=== PATIENT | female | born 1970 | race Caucasian/White ===

== ENCOUNTER 2016-11-29 19:16 | Emergency (ER) | payer BC ==
[2016-11-29 19:35] VITALS: BP 162/112
[2016-11-29] MEDS ORDERED: Sodium Chloride 0.9% 10 ML Syringe FLUSH PRN (19:45)
--- NOTE | 2016-11-29 19:49 | EDM.PDOC ---
ED HISTORY OF PRESENT ILLNESS - General Chief Complaint: Chest Pain Stated Complaint: CHEST PAIN Time Seen by Provider: 11/29/16 19:33 Source of Information: Reports: Patient History Limitations: Reports: No limitations - History of Present Illness INITIAL COMMENTS - FREE TEXT/NARRATIVE: Patient is a 46-year-old female presents ED complaining of sharp chest discomfort along the sternal border that radiates into her right armpit, shoulder, and chin. 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 Patient states the pain came on abruptly with no known aggravating factors. Worsen with taking a deep breath and also palpation. Less than on for a short period of time. She's been experiencing this proximally 6-7 times since onset. States the intensity has increased mildly. Denies any sweating, nausea, vomiting, shortness of breath, dizziness, lightheadedness, cough, fever/chills, or any additional complaints. She has a history of acid reflux and although she did not have any D. symptoms she took 2 Pepcid pills. She has no prior history of these similar type symptoms. Denies any recent upper respiratory infection. Past medical history hyperlipidemia, depression, and acid reflux Current medications include Lexapro and vitamin B12 SH: Hysterectomy, Bowel Resection She does multiple first degree relatives with heart disease. 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 stated) - Related Data Allergies/ADRs: Allergies Allergy/AdvReac Type Severity Reaction Status Date / Time No Known Allergies Allergy Verified 11/29/16 19:27 Home Meds: Home Meds Cyanocobalamin (Vitamin B12) [Vitamin B12] 1,000 mcg INJECT ASDIRECTED 05/15/14 [History] Escitalopram [Lexapro] 20 mg PO DAILY 11/29/16 [History] Past Medical History HEENT History: Reports: Impaired vision Cardiovascular History: Reports: High cholesterol Gastrointestinal History: Reports: Chronic diarrhea, GERD 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 hysterectomy Oncologic (Cancer) History: Reports: Cervix - Past Surgical History GI Surgical History: Reports: Other (see below) Other GI Surgeries/Procedures: knicked bowel during hysterectomy and had some bowel removed. Social & Family History - Family History Cardiac: Reports: CAD - Tobacco Use Smoking Status *Q: Never Smoker - Caffeine Use Caffeine Use: Reports: Coffee, Tea - Recreational Drug Use Recreational Drug Use: No ED ROS GENERAL - Review of Systems Review Of Systems: ROS reveals no pertinent complaints other than HPI. ED EXAM, GENERAL - Physical Exam Exam: See Below Exam Limited By: No limitations General Appearance: alert, WD/WN, no apparent distress Ears: hearing grossly normal Nose: normal inspection Throat/Mouth: Normal voice, No airway compromise Neck: normal inspection Respiratory/Chest: no respiratory distress, lungs clear, normal breath sounds, no accessory muscle use, other (Pain with palpation along anita fifth intercostal space on the right side with radiation to her right armpit. ) GI/Abdominal: normal bowel sounds, soft, non tender, no distention Back Exam: normal inspection. No: CVA tenderness (L), CVA tenderness (R) Extremities: normal inspection, non-tender, no pedal edema Neurological: alert, oriented, CN II-XII intact, normal cognition, normal gait, no motor/sensory deficits Psychiatric: normal affect, normal mood Skin Exam: Warm, Dry, Intact, Normal color Course - Vital Signs Last Recorded V/S: Last Vital Signs Temp 97.3 F 11/29/16 19:29 Pulse 87 11/29/16 19:29 Resp 18 11/29/16 19:29 BP 162/112 H 11/29/16 19:29 Pulse Ox 99 11/29/16 19:29 - Orders/Labs/Meds Orders: Active Orders 24 hr Category Date Time Status EKG Documentation Completion [RC] STAT Care 11/29/16 19:45 Active Peripheral IV Care [RC] . DIRECTED Care 11/29/16 19:45 Active Chest 2V [CR] Stat Exams 11/29/16 19:45 Taken Peripheral IV Insertion Adult [OM.PC] Stat Oth 11/29/16 19:45 Ordered Labs: Laboratory Tests 11/29/16 11/29/16 Range/Units 20:04 20:04 WBC 9.39 (3.98-10.04) K/mm3 RBC 4.80 (3.98-5.22) M/mm3 Hgb 13.2 (11.2-15.7) gm/L Hct 39.5 (34.1-44.9) % MCV 82.3 (79.4-94.8) fl MCH 27.5 (25.6-32.2) pg MCHC 33.4 (32.2-35.5) g/dl RDW Std Deviation 39.9 (36.4-46.3) fL Plt Count 178 L (182-369) K/mm3 MPV 10.7 (9.4-12.3) fl Neut % (Auto) 56.9 (34.0-71.1) % Lymph % (Auto) 34.2 (19.3-51.7) % [place] % (Auto) 6.4 (4.7-12.5) % Eos % (Auto) 1.9 (0.7-5.8) Baso % (Auto) 0.3 (0.1-1.2) % Neut # (Auto) 5.34 (1.56-6.13) K/mm3 Lymph # (Auto) 3.21 (1.18-3.74) K/mm3 [place] # (Auto) 0.60 H (0.24-0.36) K/mm3 Eos # (Auto) 0.18 (0.04-0.36) K/mm3 Baso # (Auto) 0.03 (0.01-0.08) K/mm3 Sodium 143 (136-145) mEq/L Potassium 3.1 L (3.5-5.1) mEq/L Chloride 104 (98-107) mEq/L Carbon Dioxide 30 (21-32) mEq/L Anion Gap 12.1 (5-15) BUN 12 (7-18) mg/dL Creatinine 0.8 (0.55-1.02) mg/dL Est Cr Clr Drug Dosing TNP Estimated GFR (MDRD) > 60 (>60) mL/min BUN/Creatinine Ratio 15.0 (14-18) Glucose 115 H (74-106) mg/dL Calcium 9.0 (8.5-10.1) mg/dL Total Bilirubin 1.1 H (0.2-1.0) mg/dL AST 25 (15-37) U/L ALT 28 (14-59) U/L Alkaline Phosphatase 81 (46-116) U/L Troponin I < 0.017 (0.00-0.056) ng/mL C-Reactive Protein 1.9 H* (<1.0) mg/dL Total Protein 6.9 (6.4-8.2) g/dl Albumin 3.3 L (3.4-5.0) g/dl Globulin 3.6 gm/dL Albumin/Globulin Ratio 0.9 L (1-2) Meds: Medications Discontinued Medications Generic Name Dose Route Start Last Admin Trade Name Freq PRN Reason Stop Dose Admin Ketorolac Tromethamine 30 mg 11/29/16 21:05 11/29/16 21:11 Toradol IVPUSH 11/29/16 21:06 30 mg ONETIME ONE Administration Sodium Chloride 10 ml 11/29/16 19:45 11/29/16 20:48 Saline Flush FLUSH 10 ml ASDIRECTED PRN Administration Keep Vein Open - Re-Assessments/Exams Free Text/Narrative Re-Assessment/Exam: Examination elicited reproducible pain with palpation along the fourth and fifth intercostal space on the right side with radiation to her right armpit. Pain is worsened with taking a deep breath and palpation. States she has radiation to her right shoulder and also chin. She had no diaphoresis, shortness of breath, nausea/vomiting, or any additional complaints. She has no prior history of chest pain as such. 11/29/16 19:47 Ordered peripheral IV. Initial labs and studies include CBC, chem 14, CRP, EKG, and chest x-ray. PERC rule negative. CXR reviewed with Dr. Erwin revealed no acute findings. Final interpretation is pending. EKG Sinus rhythm with normal p axis, rate of 73, QTc 468, No acute st changes noted. Labs reviewed. Potassium 3.1, troponin within normal limits, CRP mildly elevated 1.9, CBC essentially normal. 11/29/16 21:17 Reassessment, patient has no complaints at this time. Vital signs are stable. She is ready be discharged home. I did share the results of the labs and studies with the patient. She is aware that she has low potassium and will need supplementation. Instructions as documented. Departure - Departure Time of Disposition: 21:18 Disposition: Home, Self-Care 01 Condition: good Clinical Impression: Atypical chest pain, Hypokalemia, Costal chondritis Instructions: Nonspecific Chest Pain, [id number] Referrals: Carlee Long MD [Primary Care Provider] - Forms: ED Department Discharge Additional Instructions: As discussed chest x-ray and EKG did not reveal any concerning findings. Troponin which is a specific enzymes to the heart was within normal limits. CRP was mildly elevated which is a non-specific inflammatory marker. Most likely this is related to costochondritis or inflammation to one of the rib joints located in the right-side of the chest. Treatment is symptomatic care only. This includes ibuprofen 600 mg every 6 hours and Tylenol 650 mg every 6hrs in alternating fashion. Please take ibuprofen with food. If you develop stomach irritation suggest taking Pepcid one tab daily. Followup with your primary care provider this coming week if symptoms not improved. Return back to ED if you develop any new or worsening symptoms as discussed.. - My Orders Last 24 Hours: My Active Orders 11/29/16 19:45 EKG Documentation Completion [RC] STAT Peripheral IV Care [RC] . DIRECTED Chest 2V [CR] Stat Peripheral IV Insertion Adult [OM.PC] Stat - Assessment/Plan Last 24 Hours: My Active Orders 11/29/16 19:45 EKG Documentation Completion [RC] STAT Peripheral IV Care [RC] . DIRECTED Chest 2V [CR] Stat Peripheral IV Insertion Adult [OM.PC] Stat
[2016-11-29] MEDS ORDERED: Ketorolac 30 MG/ML SDV IVPUSH ONE (21:05)
--- NOTE | 2016-11-30 08:21 | CR ---
Chest: Two views of the chest were obtained. Comparison: No previous study. Heart size and mediastinum are normal. Lungs are clear. Bony structures are unremarkable for the patient's age. Impression: 1. Nothing acute is identified on two-view chest x-ray. Diagnostic code #1
== END 2016-11-29 21:27 | disposition home or self-care (01) ==
LOC: JD.ED 19:16
DX: M94.0 Chondrocostal junction syndrome [Tietze] (principal); R07.89 Other chest pain; E87.6 Hypokalemia; E78.00 Pure hypercholesterolemia, unspecified; K21.9 Gastro-esophageal reflux disease without esophagitis; F32.9 Major depressive disorder, single episode, unspecified; Z79.899 Other long term (current) drug therapy; Z90.710 Acquired absence of both cervix and uterus
CPT/HCPCS: 36415; 71020; 80053; 84484; 85025; 86140; 93005; 96374; 99285; J1885; J7050; 99284

== ENCOUNTER 2017-05-02 14:47 | Emergency (ER) | payer BC ==
[2017-05-02] MEDS ORDERED: HYDROmorphone 1 MG/ML Syringe IVPUSH ONE (15:42)
[2017-05-02] MEDS ORDERED: Sodium Chloride 0.9% 10 ML Syringe FLUSH PRN ×2 (15:42→16:18)
[2017-05-02] MEDS ORDERED: Ondansetron 4 MG/2 ML SDV IVPUSH ONE (15:42)
[2017-05-02] MEDS ORDERED: Sodium Chloride 0.9% 1,000 ML IV ONE (15:42)
--- NOTE | 2017-05-02 15:53 | EDM.PDOC ---
ED HPI GENERAL MEDICAL PROBLEM - General Chief Complaint: Abdominal Pain Stated Complaint: SIDE PAIN Time Seen by Provider: 05/02/17 15:36 Source of Information: Reports: Patient History Limitations: Reports: No Limitations - History of Present Illness INITIAL COMMENTS - FREE TEXT/NARRATIVE: 46-year-old female presents for evaluation and treatment of abdominal pain. Patient reports that the abdominal pain woke her from sleep around 0530 this morning. She states that is located on the left upper quadrant and epigastric area radiates into her back. Patient reports associated symptoms of nausea, bloating and a decreased appetite. She denies any fevers, vomiting, dysuria or hematuria. Patient reports that she had 2 bowel movements today. She states that she did have looser stools, no blood in the stool. Reports that she is not passing much gas. Patient reports that she had a colonoscopy 2 or 3 years ago. Only polyps were found. Reports that she's had multiple abdominal surgeries including hernia repairs, cholecystectomy, hysterectomy and partial bowel resection. 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 CLERK: pepcid Left Abdomen Pain Score (Numeric/FACES): 6 - Related Data Allergies Allergy/AdvReac Type Severity Reaction Status Date / Time No Known Allergies Allergy Verified 11/29/16 19:27 Home Meds: Home Meds Cyanocobalamin (Vitamin B12) [Vitamin B12] 1,000 mcg INJECT ASDIRECTED 05/15/14 [History] Escitalopram [Lexapro] 20 mg PO DAILY 11/29/16 [History] Past Medical History HEENT History: Reports: Impaired Vision Cardiovascular History: Reports: High Cholesterol, Hypertension Gastrointestinal History: Reports: Chronic Diarrhea, 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 hysterectomy Endocrine/Metabolic History: Reports: Diabetes, Type II Other Endocrine/Metabolic History: recent diagnosis-nno meds yet Oncologic (Cancer) History: Reports: Cervix - Past Surgical History GI Surgical History: Reports: Other (See Below) Social & Family History - Family History Cardiac: Reports: CAD - Tobacco Use Smoking Status *Q: Never Smoker - Caffeine Use Caffeine Use: Reports: Coffee - Recreational Drug Use Recreational Drug Use: No ED ROS GENERAL - Review of Systems Review Of Systems: See Below Constitutional: Reports: Decreased Appetite. Denies: Fever GI/Abdominal: Reports: Abdominal Pain, Distension, Nausea. Denies: Diarrhea, Flatus, Hematochezia, Melena, Vomiting : Reports: No Symptoms, Flank Pain. Denies: Dysuria ED EXAM, GI/ABD - Physical Exam Exam: See Below Exam Limited By: No Limitations General Appearance: Alert, WD/WN, Mild Distress, Obese Ears: Normal External Exam Nose: Normal Inspection Throat/Mouth: Normal Inspection, Normal Voice, No Airway Compromise Respiratory/Chest: No Respiratory Distress, Lungs Clear, Normal Breath Sounds Cardiovascular: Normal Peripheral Pulses, Regular Rate, Rhythm, No Murmur GI/Abdominal Exam: Distended, Tender, Abnormal Bowel Sounds (decreased erendira sounds). No: Rigid, Rebound Neurological: Alert, Oriented, Normal Cognition Psychiatric: Normal Affect, Normal Mood Skin Exam: Warm, Dry, Normal Color Course - Vital Signs Last Recorded V/S: Last Vital Signs Temp 36.6 C 05/02/17 15:00 Pulse 65 05/02/17 18:59 Resp 20 05/02/17 15:00 BP 128/76 05/02/17 18:59 Pulse Ox 96 05/02/17 18:59 - Orders/Labs/Meds Labs: Laboratory Tests 05/02/17 05/02/17 05/02/17 Range/Units 15:19 15:50 15:50 WBC 10.39 H (3.98-10.04) K/mm3 RBC 5.08 (3.98-5.22) M/mm3 Hgb 14.3 (11.2-15.7) gm/L Hct 42.0 (34.1-44.9) % MCV 82.7 (79.4-94.8) fl MCH 28.1 (25.6-32.2) pg MCHC 34.0 (32.2-35.5) g/dl RDW Std Deviation 40.6 (36.4-46.3) fL Plt Count 157 L (182-369) K/mm3 MPV 11.4 (9.4-12.3) fl Neutrophils % (Manual) 72 H (40-60) % Band Neutrophils % 0 (0-10) % Lymphocytes % (Manual) 20 (20-40) % Atypical Lymphs % 0 % Monocytes % (Manual) 4 (2-10) % Eosinophils % (Manual) 2 (0.7-5.8) % Basophils % (Manual) 2 H (0.1-1.2) Platelet Estimate Adequate RBC Morph Comment Normal Sodium 145 (136-145) mEq/L Potassium 3.7 (3.5-5.1) mEq/L Chloride 108 H (98-107) mEq/L Carbon Dioxide 32 (21-32) mEq/L Anion Gap 8.7 (5-15) BUN 11 (7-18) mg/dL Creatinine 0.9 (0.55-1.02) mg/dL Est Cr Clr Drug Dosing TNP Estimated GFR (MDRD) > 60 (>60) mL/min BUN/Creatinine Ratio 12.2 L (14-18) Glucose 97 (74-106) mg/dL Calcium 9.4 (8.5-10.1) mg/dL Total Bilirubin 1.8 H (0.2-1.0) mg/dL AST 38 H (15-37) U/L ALT 29 (14-59) U/L Alkaline Phosphatase 73 (46-116) U/L C-Reactive Protein 0.4 (<1.0) mg/dL Total Protein 7.1 (6.4-8.2) g/dl Albumin 3.5 (3.4-5.0) g/dl Globulin 3.6 gm/dL Albumin/Globulin Ratio 1.0 (1-2) Lipase 124 (73-393) U/L Urine Color Yellow (Yellow) Urine Appearance Slt cloudy H (Clear) Urine pH 5.5 (5.0-8.0) Ur Specific [place] 1.025 (1.005-1.030) Urine Protein Negative (Negative) Urine Glucose (UA) Negative (Negative) Urine Ketones Negative (Negative) Urine Occult Blood Negative (Negative) Urine Nitrite Negative (Negative) Urine Bilirubin Negative (Negative) Urine Urobilinogen 0.2 (0.2-1.0) Ur Leukocyte Esterase Trace H (Negative) Urine RBC 0-5 (0-5) /hpf Urine WBC 0-5 (0-5) /hpf Ur Epithelial Cells 0-5 (0-5) /hpf Urine Bacteria Moderate H (FEW) /hpf Urine Mucus Moderate H (FEW) /hpf Meds: Medications Discontinued Medications Generic Name Dose Route Start Last Admin Trade Name Freq PRN Reason Stop Dose Admin Diatrizoate Meglum/Diatrizoate Sod 120 ml 09/24/17 16:18 05/02/17 17:36 Gastrografin 37% PO 05/02/17 16:19 90 ml ONETIME ONE Administration Hydromorphone HCl 1 mg 05/02/17 15:42 05/02/17 15:57 Dilaudid IVPUSH 05/02/17 15:43 1 mg ONETIME ONE Administration Sodium Chloride 1,000 mls @ 999 mls/hr 05/02/17 15:42 05/02/17 16:00 Normal Saline IV 05/02/17 16:42 999 mls/hr ONETIME ONE Administration Iopamidol 150 ml 05/02/17 16:18 05/02/17 17:36 Isovue-300 (61%) IVPUSH 05/02/17 16:19 125 ml ONETIME ONE Administration Ketorolac Tromethamine 30 mg 05/02/17 18:50 05/02/17 18:56 Toradol IVPUSH 05/02/17 18:51 30 mg ONETIME ONE Administration Ondansetron HCl 4 mg 05/02/17 15:42 05/02/17 15:54 Zofran IVPUSH 05/02/17 15:43 4 mg ONETIME ONE Administration Sodium Chloride 10 ml 05/02/17 15:42 05/02/17 15:58 Saline Flush FLUSH 10 ml ASDIRECTED PRN Administration Keep Vein Open Sodium Chloride 10 ml 05/02/17 16:18 05/02/17 17:36 Saline Flush FLUSH 10 ml ONETIME PRN Administration IV FLUSH - Re-Assessments/Exams Free Text/Narrative Re-Assessment/Exam: 05/02/17 15:55 Plan is to obtain labs and CT to rule out pancreatitis, diverticulitis and bowel obstruction. Medication given for pain and nausea. 18:50 I reviewed the labs and imagining with the patient. AT this point etiology for the abdominal pain not entirely clear. UA had moderate bacteria seen on microscopy. Urien sent for culture. I do not feel we need to treat as this is likely contamination. She has no urinary symptoms. I've asked Dr. Kwesi Erwin to come and see the patient. Pain improved but returning slightly. Toradol ordered for pain relief. 05/02/17 19:19 Abdominal pain improved. I discussed the case with Dr. Kwesi Erwin. She has come and seen the patient. Does not feel further work-up is needed at this time. Will discharge the patient home at this time. Discharge instructions as documented. Departure - Departure Time of Disposition: 19:19 Disposition: Home, Self-Care 01 Condition: Good Clinical Impression: Abdominal pain of unknown etiology - Discharge Information Instructions: Abdominal Pain, Adult, [id number] Referrals: Carlee Long MD [Primary Care Provider] - Forms: ED Department Discharge Additional Instructions: Follow-up with your PCP this week for a recheck of your symptoms. Rest. Drink plenty of fluids. OTC tylenol or motrin as needed for pain. Please return to the ER should your symptoms change or worsen.
[2017-05-02] MEDS ORDERED: Iopamidol 612 MG/ML 150 ML Bottle IVPUSH ONE (16:18)
[2017-05-02] MEDS ORDERED: Diatrizoate Meglumine/Diatrizoate Sodium 37% 120 ML Bottle PO ONE (16:18)
--- NOTE | 2017-05-02 18:05 | CT ---
CT abdomen and pelvis Technique: Multiple axial sections were obtained from above the dome of the diaphragm inferiorly through the pubic symphysis. Intravenous and oral contrast was utilized. Delayed images were obtained through the bladder. Comparison: No previous abdominal CT. Findings: Visualized lung bases shows nothing acute. Liver shows fatty infiltration. Previous cholecystectomy is noted. No focal abnormality is identified within the liver. Spleen appears within normal limits. Adrenal glands show no nodule. Kidneys show symmetric contrast enhancement without hydronephrosis or mass. Pancreas appears within normal limits. Small soft tissue nodule within the splenic hilum is seen compatible with accessory splenic tissue. Aorta shows no aneurysmal dilatation. No retroperitoneal adenopathy or mesenteric abnormalities are seen. Graft material is seen within the anterior abdominal wall. No pelvic mass or adenopathy is seen. No inflammatory change is seen. Mild diverticulosis is noted. Several right-sided diverticuli are also seen. No bowel dilatation is seen. No bowel wall thickening is identified. Appendix is not definitely visualized. Delayed images were obtained through the bladder which shows contrast within the bladder. Bone window settings were reviewed which shows bilateral spondylolytic defects at L5-S1 with spondylolisthesis at L5-S1 measuring approximately 9 mm. Severe disc space narrowing is noted at L5-S1 with vacuum phenomena. Lesser degenerative change is seen at L4-L5. Impression: 1. Spondylolytic defects at L5-S1 causing 9 mm spondylolisthesis. 2. Mild diverticulosis is seen which includes right-sided diverticuli without inflammatory change to indicate diverticulitis. 3. Fatty infiltration within the liver and other incidental findings. 4. Nothing acute is appreciated on CT study of the abdomen and pelvis. Diagnostic code #2
[2017-05-02] MEDS ORDERED: Ketorolac 30 MG/ML SDV IVPUSH ONE (18:50)
[2017-05-02 18:59] VITALS: BP 128/76
== END 2017-05-02 19:32 | disposition home or self-care (01) ==
LOC: JD.ED 14:47
DX: R10.9 Unspecified abdominal pain (principal); I10 Essential (primary) hypertension; E11.9 Type 2 diabetes mellitus without complications; Z79.899 Other long term (current) drug therapy
CPT/HCPCS: 36415; 74177; 80053; 81001; 83690; 85025; 86140; 87086; 96361; 96374; 96375; 99284; J1170; J1885; J2405; J7040; J7050; Q9963; Q9967

== ENCOUNTER 2017-11-18 14:13 | Emergency (ER) | payer BC ==
[2017-11-18 14:25] VITALS: BP 158/98
[2017-11-18] MEDS ORDERED: Alum Hydrox/Mag Hydrox/Simeth 30 ML, Lidocaine 2% 15 ML PO ONE ×2 (15:06)
[2017-11-18] MEDS ORDERED: Sodium Chloride 0.9% 10 ML Syringe FLUSH PRN (15:11)
[2017-11-18] MEDS ORDERED: Ondansetron 4 MG/2 ML SDV IVPUSH ONE (15:17)
[2017-11-18] MEDS ORDERED: Sodium Chloride 0.9% 1,000 ML IV ONE (15:46)
--- NOTE | 2017-11-18 15:47 | EDM.PDOC ---
<Kavya Scott - Last Filed: 11/18/17 16:09> ED HPI GENERAL MEDICAL PROBLEM - General Chief Complaint: Abdominal Pain Stated Complaint: ABDOMINAL PAIN/NAUSEA Time Seen by Provider: 11/18/17 14:50 Source of Information: Reports: Patient History Limitations: Reports: No Limitations - History of Present Illness INITIAL COMMENTS - FREE TEXT/NARRATIVE: Patient is a 47 YO female who presents today for abdominal pain. She states the pain came on suddenly while driving to work around 0800 this morning. She describes the pain as cramping and sharp, located in the epigastric region and radiating to the RUQ and LUQ and around to her back. The pain is made worse with deep breaths and having a BM. Nothing makes the pain better. She was able to eat lunch around noon today but it made her very nauseous. She denies vomiting. She has not taken anything for the pain yet today. She has baseline diarrhea which has been normal for her today. She denies blood in the stool. She does have some baseline GERD but to her this does not feel the same. She does use TUMS on occasion. For the past 2 weeks, she has been experiencing urinary frequency but denies pain with urination or hematuria. Patient states prior to the onset of the pain she felt well and denies any fever. Epigastric Pain Score (Numeric/FACES): 8 - Related Data Allergies Allergy/AdvReac Type Severity Reaction Status Date / Time No Known Allergies Allergy Verified 11/18/17 14:25 Home Meds: Home Meds Cyanocobalamin (Vitamin B12) [Vitamin B12] 1,000 mcg INJECT ASDIRECTED 05/15/14 [History] Escitalopram [Lexapro] 20 mg PO DAILY 11/29/16 [History] Cholestyramine/Sucrose [Cholestyramine Powder] 4 gm PO DAILY 11/18/17 [History] atorvaSTATin [Lipitor] 20 mg PO BEDTIME 11/18/17 [History] buPROPion HCl [Wellbutrin SR] 150 mg PO DAILY 11/18/17 [History] valACYclovir HCl [Valacyclovir] 2,000 mg PO DAILY 11/18/17 [History] Past Medical History HEENT History: Reports: Impaired Vision Cardiovascular History: Reports: High Cholesterol, Hypertension Gastrointestinal History: Reports: Chronic Diarrhea, GERD [employer] History: Reports: Other (See Below) Other OB/BYN History: infertality issues. hysterectomy Endocrine/Metabolic History: Reports: Diabetes, Type II Other Endocrine/Metabolic History: recent diagnosis-nno meds yet Oncologic (Cancer) History: Reports: Cervix - Past Surgical History GI Surgical History: Reports: Other (See Below) Social & Family History - Family History Cardiac: Reports: CAD - Tobacco Use Smoking Status *Q: Never Smoker - Caffeine Use Caffeine Use: Reports: Coffee - Recreational Drug Use Recreational Drug Use: No ED ROS GENERAL - Review of Systems Review Of Systems: See Below Constitutional: Reports: No Symptoms Respiratory: Reports: Pleuritic Chest Pain. Denies: Cough Cardiovascular: Reports: No Symptoms GI/Abdominal: Reports: Abdominal Pain, Diarrhea, Nausea. Denies: Constipation, Difficulty Swallowing, Vomiting : Reports: Frequency, Urgency. Denies: Discharge, Dysuria, Hematuria, Pain Musculoskeletal: Reports: No Symptoms Neurological: Reports: No Symptoms Psychiatric: Reports: No Symptoms ED EXAM, GI/ABD - Physical Exam Exam: See Below Exam Limited By: No Limitations General Appearance: Alert, WD/WN, Mild Distress Respiratory/Chest: No Respiratory Distress, Lungs Clear, Normal Breath Sounds Cardiovascular: Normal Peripheral Pulses, Regular Rate, Rhythm, No Murmur, Other (pitting edema lower extremities bilaterally) GI/Abdominal Exam: Normal Bowel Sounds, Soft, Tender (epigastric and mild tenderness in RUQ and LUQ), Other (obese). No: Guarding, Rebound Back Exam: No: CVA Tenderness (L), CVA Tenderness (R) Neurological: Alert, Oriented, CN II-XII Intact, Normal Cognition Psychiatric: Normal Affect, Normal Mood Skin Exam: Warm, Dry, Intact, Normal Color Course - Vital Signs Last Recorded V/S: Last Vital Signs Temp 37.1 C 11/18/17 14:23 Pulse 99 11/18/17 14:23 Resp 17 11/18/17 14:23 BP 158/98 H 11/18/17 14:23 Pulse Ox 100 11/18/17 14:23 - Orders/Labs/Meds Orders: Active Orders 24 hr Category Date Time Status Peripheral IV Care [RC] . DIRECTED Care 11/18/17 15:12 Active UA W/MICROSCOPIC [URIN] Stat Lab 11/18/17 15:20 Ordered Peripheral IV Insertion Adult [OM.PC] Stat Oth 11/18/17 15:11 Ordered Labs: Laboratory Tests 11/18/17 11/18/17 11/18/17 Range/Units 15:14 15:14 15:20 WBC 10.38 H (3.98-10.04) K/mm3 RBC 4.64 (3.98-5.22) M/mm3 Hgb 12.7 (11.2-15.7) gm/L Hct 38.3 (34.1-44.9) % MCV 82.5 (79.4-94.8) fl MCH 27.4 (25.6-32.2) pg MCHC 33.2 (32.2-35.5) g/dl RDW Std Deviation 40.2 (36.4-46.3) fL Plt Count 173 L (182-369) K/mm3 MPV 10.7 (9.4-12.3) fl Neut % (Auto) 68.1 (34.0-71.1) % Lymph % (Auto) 24.6 (19.3-51.7) % Wheeler % (Auto) 5.4 (4.7-12.5) % Eos % (Auto) 1.3 (0.7-5.8) Baso % (Auto) 0.2 (0.1-1.2) % Neut # (Auto) 7.07 H (1.56-6.13) K/mm3 Lymph # (Auto) 2.55 (1.18-3.74) K/mm3 Wheeler # (Auto) 0.56 H (0.24-0.36) K/mm3 Eos # (Auto) 0.14 (0.04-0.36) K/mm3 Baso # (Auto) 0.02 (0.01-0.08) K/mm3 Sodium 147 H (136-145) mEq/L Potassium 3.2 L (3.5-5.1) mEq/L Chloride 107 (98-107) mEq/L Carbon Dioxide 28 (21-32) mEq/L Anion Gap 15.2 H (5-15) BUN 12 (7-18) mg/dL Creatinine 1.0 (0.55-1.02) mg/dL Est Cr Clr Drug Dosing 53.82 mL/min Estimated GFR (MDRD) 59 (>60) mL/min BUN/Creatinine Ratio 12.0 L (14-18) Glucose 161 H (74-106) mg/dL Calcium 8.4 L (8.5-10.1) mg/dL Total Bilirubin 1.3 H (0.2-1.0) mg/dL AST 18 (15-37) U/L ALT 22 (14-59) U/L Alkaline Phosphatase 90 (46-116) U/L C-Reactive Protein 1.1 H* (<1.0) mg/dL Total Protein 6.7 (6.4-8.2) g/dl Albumin 3.1 L (3.4-5.0) g/dl Globulin 3.6 gm/dL Albumin/Globulin Ratio 0.9 L (1-2) Lipase 117 (73-393) U/L Urine Color Light yellow (Yellow) Urine Appearance Slt cloudy H (Clear) Urine pH 6.0 (5.0-8.0) Ur Specific [place] > or = 1.030 (1.005-1.030) Urine Protein Trace H (Negative) Urine Glucose (UA) Negative (Negative) Urine Ketones Negative (Negative) Urine Occult Blood Negative (Negative) Urine Nitrite Negative (Negative) Urine Bilirubin Negative (Negative) Urine Urobilinogen 0.2 (0.2-1.0) Ur Leukocyte Esterase 2+ H (Negative) Urine RBC Not seen (0-5) /hpf Urine WBC >100 H (0-5) /hpf Ur Epithelial Cells 5-10 H (0-5) /hpf Urine Bacteria Moderate H (FEW) /hpf Urine Mucus Few (FEW) /hpf Meds: Medications Discontinued Medications Generic Name Dose Route Start Last Admin Trade Name Eliecerq PRN Reason Stop Dose Admin Al Hydroxide/Mg Hydroxide 30 0 ml 11/18/17 15:06 11/18/17 15:34 ml/ Lidocaine HCl 15 ml PO 11/18/17 15:07 45 ml ONETIME ONE Administration Famotidine 20 mg 11/18/17 17:16 11/18/17 17:57 Pepcid IVPUSH 11/18/17 17:17 20 mg ONETIME ONE Administration Potassium Chloride 10 meq/ 100 mls @ 100 mls/hr 11/18/17 16:00 11/18/17 15:57 Premix IV 100 mls/hr ASDIRECTED JUSTEN Administration Sodium Chloride 1,000 mls @ 999 mls/hr 11/18/17 15:46 11/18/17 15:57 Normal Saline IV 11/18/17 16:46 999 mls/hr ONETIME ONE Administration Ketorolac Tromethamine 30 mg 11/18/17 17:16 11/18/17 17:57 Toradol IVPUSH 11/18/17 17:17 30 mg ONETIME ONE Administration Morphine Sulfate 4 mg 11/18/17 16:04 11/18/17 16:15 Morphine IVPUSH 11/18/17 16:05 4 mg ONETIME ONE Administration Ondansetron HCl 4 mg 11/18/17 15:17 11/18/17 15:34 Zofran IVPUSH 11/18/17 15:18 4 mg ONETIME ONE Administration Sodium Chloride 10 ml 11/18/17 15:11 11/18/17 15:33 Saline Flush FLUSH 10 ml ASDIRECTED PRN Administration Keep Vein Open Departure - Departure Disposition: Home, Self-Care 01 Clinical Impression: Abdominal pain - Discharge Information Instructions: Abdominal Pain, Adult Referrals: Cralee Long MD [Primary Care Provider] - Forms: ED Department Discharge Additional Instructions: Clear fluids and a bland diet. Progress to a more normal diet as tolerated. [id number] Tylenol and Motrin seen for pain relief. Follow up with your primary care provider within 2 weeks for recheck of your symptoms. Recommend discussing an upper endoscopy to further evaluate cause of your symptoms. Please return to the ER if your symptoms change or worsen. <Lillian Becerra - Last Filed: 11/18/17 22:03> ED HPI GENERAL MEDICAL PROBLEM - General Source of Information: Reports: Old Records (previous ER visits) - History of Present Illness INITIAL COMMENTS - FREE TEXT/NARRATIVE: I have seen the patient and agreed history of present illness as documented by Kavya Scott. Additionally to me she denies any chest pain, shortness of breath or cough. She denies any pain or swelling in her legs or any recent long road trips. Patient reports that she's had a similar episode to this in the past. She had a complete workup done and was told that she had a spasming diaphragm. I did review the patient's previous ER records. She was seen by myself in April 2017. She had a complete workup done and a CT. Discharged home at that time. ED ROS GENERAL - Review of Systems Respiratory: Denies: Shortness of Breath Cardiovascular: Denies: Chest Pain, Edema ED EXAM, GI/ABD - Physical Exam General Appearance: Obese Course - Radiology Interpretation Free Text/Narrative:: Chest: Portable view of the chest was obtained. Comparison: Prior chest x-ray of 11/29/16. Heart size and mediastinum are normal. Lungs are clear. Bony structures are grossly intact. Impression: 1. Nothing acute is seen on portable chest x-ray. Abdomen: Supine and upright views of the abdomen were obtained. Comparison: No prior abdominal x-ray. Bowel gas pattern appears normal. Surgical clips are seen within the right upper abdomen from cholecystectomy as well as surgical material within the right lower abdomen. Several calcifications are seen within the pelvis most likely representing phleboliths. Bony structures appear within normal limits for the patient's age. Impression: 1. Incidental findings. No free air is seen. - Re-Assessments/Exams Free Text/Narrative Re-Assessment/Exam: 11/18/17 15:30 I seen the patient and agree with the history of present illness and review systems as documented by MEAGAN Velásquez. I did not appreciate any pitting edema to the bilateral lower extremities. 11/18/17 16:10 I reviewed the chest x-ray and labs with the patient. Did not feel that she needs a CT as her CT in April did not show anything acute and her presentation is very similar to April. Patient reports no relief with the GI cocktail. Morphine ordered for pain relief that she continues to look uncomfortable. 11/18/17 17:20 Patient reports no relief with the IV morphine. I did order her some Pepcid and some Toradol. Flat and upright of the abdomen ordered as well to further evaluate. 11/18/17 18:22 Patient feels greatly improved after the IV Pepcid and Toradol. She feels comfortable going home. I would recommend that she follow-up with her primary care provider. May need to discuss an upper endoscopy as this could be part of her problems. I will treat her for urinary tract infection with her 2+ leukocytes, however, I do not fill as well as causing her excruciating pain tonight. Rx for Macrobid 100 mg caps 1 twice a day 7 days. Discharge instructions as documented. Departure - Departure Time of Disposition: 18:25 Condition: Fair
[2017-11-18] MEDS ORDERED: Potassium Chloride 10 MEQ in Premix Bag 1 BAG IV SCH (16:00)
[2017-11-18] MEDS ORDERED: Morphine 4 MG/ML Syringe IVPUSH ONE (16:04)
--- NOTE | 2017-11-18 16:39 | CR ---
Chest: Portable view of the chest was obtained. Comparison: Prior chest x-ray of 11/29/16. Heart size and mediastinum are normal. Lungs are clear. Bony structures are grossly intact. Impression: 1. Nothing acute is seen on portable chest x-ray. Diagnostic code #1
[2017-11-18] MEDS ORDERED: Famotidine 20 MG/2 ML SDV IVPUSH ONE (17:16)
[2017-11-18] MEDS ORDERED: Ketorolac 30 MG/ML SDV IVPUSH ONE (17:16)
--- NOTE | 2017-11-18 18:09 | CR ---
Abdomen: Supine and upright views of the abdomen were obtained. Comparison: No prior abdominal x-ray. Bowel gas pattern appears normal. Surgical clips are seen within the right upper abdomen from cholecystectomy as well as surgical material within the right lower abdomen. Several calcifications are seen within the pelvis most likely representing phleboliths. Bony structures appear within normal limits for the patient's age. Impression: 1. Incidental findings. No free air is seen. Diagnostic code #2
== END 2017-11-18 18:50 | disposition home or self-care (01) ==
LOC: JD.ED 14:13
DX: R10.13 Epigastric pain (principal); Z79.899 Other long term (current) drug therapy; I10 Essential (primary) hypertension
CPT/HCPCS: 36415; 71045; 74019; 80053; 81001; 83690; 85025; 86140; 96361; 96365; 96375; 99285; A9270; J1885; J2270; J2405; J3480; J7040; J7050; 99284

== ENCOUNTER 2019-05-25 15:35 | Emergency (ER) | payer BC ==
--- NOTE | 2019-05-25 15:56 | EDM.PDOC ---
ED HPI GENERAL MEDICAL PROBLEM - General Chief Complaint: Abdominal Pain Stated Complaint: ABDOMINAL AND BACK PAIN Time Seen by Provider: 05/25/19 15:46 Source of Information: Reports: Patient History Limitations: Reports: No Limitations - History of Present Illness INITIAL COMMENTS - FREE TEXT/NARRATIVE: 48-year-old female presents to the ED with diffuse epigastric abdominal pain that radiates along both sides of her costal margins and through to her mid back. Associated nausea without any vomiting. She states this was present when she awoke at 0830 hrs. this morning and has persisted. She has not been able to eat yet today. She states she's had similar type pain once or twice in the past. She's had previous cholecystectomy and states that she's had chronic diarrhea ever since. She typically goes 6-8 times daily. Has produced low vitamin B12 levels in the past. She's not sure if it's low now and she hasn't had an injection for greater than 6 months. She states that almost every time she eats she has a when the bathroom within 10 minutes. Suggestive of bile salt induced catharsis. She denies burping or belching to give her much relief today. Feels pain primarily in the epigastrium and radiating slightly up into the lower retrosternal chest. She has no known history of cardiac disease. Onset: Today Onset Date: 05/25/19 Onset Time: 08:30 Duration: Hour(s): Location: Reports: Abdomen (Epigastric pressure discomfort rating along both costal margins. Is perhaps slightly worsened her left upper quadrant than in the left right.), Radiates to (Pain radiates through to her lower retrosternal chest and into her mid back.) Quality: Reports: Ache, Pressure Severity: Moderate Improves with: Reports: None Worsens with: Reports: Other (Deep breathing will make it a little bit worse.) Context: Denies: Activity, Exercise, Lifting, Sick Contact, Trauma, Other Associated Symptoms: Reports: Chest Pain, Loss of Appetite, Malaise, Nausea/ Vomiting. 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.) Upper Abdomen Pain Score (Numeric/FACES): 7 - Related Data Allergies Allergy/AdvReac Type Severity Reaction Status Date / Time banana Allergy Nausea Verified 02/24/19 19:47 Home Meds: Home Meds Escitalopram [Lexapro] 20 mg PO DAILY 11/29/16 [History] atorvaSTATin [Lipitor] 20 mg PO BEDTIME 11/18/17 [History] valACYclovir HCl [Valacyclovir] 2,000 mg PO DAILY PRN 11/18/17 [History] ARIPiprazole [Aripiprazole] 5 mg PO DAILY 05/31/18 [History] Aspirin [Children's Aspirin] 81 mg PO DAILY 05/31/18 [History] Lisinopril 10 mg PO DAILY 05/31/18 [History] Omeprazole 20 mg PO DAILY 05/31/18 [History] Dicyclomine [Bentyl] 20 mg PO Q6H PRN #8 tablet 05/25/19 [Rx] oxyCODONE HCl/Acetaminophen [Percocet 5-325 mg Tablet] 1 - 2 each PO Q4H PRN # 12 tablet 05/25/19 [Rx] Past Medical History HEENT History: Reports: Impaired Vision Cardiovascular History: Reports: High Cholesterol, Hypertension Respiratory History: Reports: Sleep Apnea Gastrointestinal History: Reports: Chronic Diarrhea, GERD Genitourinary History: Reports: None [employer] History: Reports: Other (See Below) Other [employer] History: infertality issues. hysterectomy Neurological History: Reports: None Psychiatric History: Reports: Depression Endocrine/Metabolic History: Reports: Diabetes, Type II Other Endocrine/Metabolic History: recent diagnosis-nno meds yet Hematologic History: Reports: None Immunologic History: Reports: None Oncologic (Cancer) History: Reports: Cervix Dermatologic History: Reports: Other (See Below) Other Dermatologic History: cold sores - Past Surgical History HEENT Surgical History: Reports: Oral Surgery, Tonsillectomy Cardiovascular Surgical History: Reports: None GI Surgical History: Reports: Cholecystectomy, Colonoscopy, Other (See Below) Other GI Surgeries/Procedures: knicked bowel during hysterectomy and had some bowel removed. Female Surgical History: Reports: Hysterectomy Endocrine Surgical History: Reports: None Neurological Surgical History: Reports: None Musculoskeletal Surgical History: Reports: Other (See Below) Other Musculoskeletal Surgeries/Procedures:: bilateral bunionectomy Oncologic Surgical History: Reports: None Dermatological Surgical History: Reports: None Social & Family History - Family History Cardiac: Reports: CAD - Caffeine Use Caffeine Use: Reports: Soda - Living Situation & Occupation Living situation: Reports: Occupation: Employed ED ROS GENERAL - Review of Systems Review Of Systems: See Below Constitutional: Reports: Chills, Malaise, Weakness (Had some chills earlier this morning.), Fatigue, Decreased Appetite. Denies: Fever HEENT: Reports: Glasses Respiratory: Denies: Shortness of Breath, Wheezing, Pleuritic Chest Pain, Cough , Sputum Cardiovascular: Reports: Chest Pain (Lower retrosternal pressure discomfort rating from the epigastrium.), Blood Pressure Problem, Dyspnea on Exertion. Denies: Claudication, Edema, Lightheadedness, Orthopnea (Chronic hypertension.) , Palpitations Endocrine: Reports: Fatigue GI/Abdominal: Reports: Abdominal Pain (Currently having a lot of pressure in her epigastrium rating along the costal margins bilaterally.), Diarrhea ( Chronic diarrhea usually 68 times daily. This is occurred since having her gallbladder removed.) : Reports: No Symptoms Musculoskeletal: Reports: Back Pain, Joint Pain (Knees hips at times) Skin: Reports: No Symptoms Neurological: Reports: No Symptoms Psychiatric: Reports: Depression Hematologic/Lymphatic: Reports: No Symptoms Immunologic: Reports: No Symptoms ED EXAM, GI/ABD - Physical Exam Exam: See Below Exam Limited By: No Limitations General Appearance: Alert, WD/WN, Anxious, Mild Distress, Other (Temperatures 36.5. Pulse is 86 and sinus respiratory distress 20 sats are 94% on room air. BP is 1:30 02/06/03.) Eyes: Bilateral: Normal Appearance (No scleral icterus.) Throat/Mouth: Normal Inspection, Normal Lips, Normal Oropharynx Head: Atraumatic, Normocephalic Neck: Normal Inspection, Supple, Non-Tender, Full Range of Motion. No: Carotid Bruit, Lymphadenopathy (L), Lymphadenopathy (R), Thyromegaly Respiratory/Chest: Lungs Clear (Mild tachypnea at rest more to do with anxiety.) , Normal Breath Sounds, No Accessory Muscle Use, Chest Non-Tender, Respiratory Distress. No: Crackles, Rales, Rhonchi, Wheezing Cardiovascular: Normal Peripheral Pulses, Regular Rate, Rhythm, No Edema, No Gallop, No Murmur, No Rub GI/Abdominal Exam: No Organomegaly, No Distention, No Abnormal Bruit, No Mass, Pelvis Stable, Guarding, Tender, Abnormal Bowel Sounds (Bowel sounds are reactive in all 4 quadrants.). No: Rigid (Tenderness mostly in the epigastrium and left upper quadrant abdomen with mild guarding.), Rebound Back Exam: Normal Inspection, Full Range of Motion. No: CVA Tenderness (L), CVA Tenderness (R) Extremities: Normal Inspection, Normal Range of Motion, Non-Tender, No Pedal Edema Neurological: Alert, Oriented, CN II-XII Intact, Normal Cognition Psychiatric: Anxious Skin Exam: Warm, Dry, Intact, Normal Color, No Rash EKG INTERPRETATION EKG Date: 05/25/19 Time: 16:10 Rhythm: NSR Rate (Beats/Min): 85 [place]: LAD-Left [place] Deviation (Borderline left axis deviation at 0.) P-Wave: Present QRS: Other (There is decreased voltage in both limb and precordial leads. She has a very thick chest. There is early R-wave transition in V2 consider right ventricular hypertrophy versus septal hypertrophy pattern.) QT: Prolonged (Mildly prolonged) EKG Interpretation Comments: Borderline ECG Course - Vital Signs Last Recorded V/S: Last Vital Signs Temp 36.1 C 05/25/19 18:13 Pulse 84 05/25/19 18:13 Resp 12 05/25/19 18:13 BP 104/54 L 05/25/19 18:13 Pulse Ox 92 L 05/25/19 18:13 - Orders/Labs/Meds Orders: Active Orders 24 hr Category Date Time Status EKG Documentation Completion [RC] STAT Care 05/25/19 16:05 Active Influenza Vaccine Charge [RC] .DISCHARGE Care 05/25/19 16:33 Active URINALYSIS W/MICROSCOPIC [UA W/MICROSCOPIC] [URIN] Stat Lab 05/25/19 16:05 Ordered Dextrose 5%-0.9% NaCl [Dextrose 5%-Normal Saline] 1,000 Med 05/25/19 16:00 Active ml IV ASDIRECTED Medication Orders Dextrose/Sodium Chloride (Dextrose 5%-Normal Saline) 1,000 mls @ 999 mls/hr IV ASDIRECTED JUSTEN Last Admin: 05/25/19 16:22 Dose: 999 mls/hr Labs: Laboratory Tests 05/25/19 05/25/19 05/25/19 Range/Units 16:05 16:05 16:05 WBC 9.79 (3.98-10.04) K/mm3 RBC 4.79 (3.98-5.22) M/mm3 Hgb 13.2 (11.2-15.7) gm/dl Hct 39.6 (34.1-44.9) % MCV 82.7 (79.4-94.8) fl MCH 27.6 (25.6-32.2) pg MCHC 33.3 (32.2-35.5) g/dl RDW Std Deviation 41.0 (36.4-46.3) fL Plt Count 166 L (182-369) K/mm3 MPV 10.8 (9.4-12.3) fl Neut % (Auto) 64.5 (34.0-71.1) % Lymph % (Auto) 26.5 (19.3-51.7) % [place] % (Auto) 6.3 (4.7-12.5) % Eos % (Auto) 2.0 (0.7-5.8) Baso % (Auto) 0.4 (0.1-1.2) % Neut # (Auto) 6.31 H (1.56-6.13) K/mm3 Lymph # (Auto) 2.59 (1.18-3.74) K/mm3 [place] # (Auto) 0.62 H (0.24-0.36) K/mm3 Eos # (Auto) 0.20 (0.04-0.36) K/mm3 Baso # (Auto) 0.04 (0.01-0.08) K/mm3 Sodium 144 (136-145) mEq/L Potassium 3.5 (3.5-5.1) mEq/L Chloride 106 (98-107) mEq/L Carbon Dioxide 28 (21-32) mEq/L Anion Gap 13.5 (5-15) BUN 12 (7-18) mg/dL Creatinine 0.8 (0.55-1.02) mg/dL Est Cr Clr Drug Dosing 66.54 mL/min Estimated GFR (MDRD) > 60 (>60) mL/min BUN/Creatinine Ratio 15.0 (14-18) Glucose 111 H (74-106) mg/dL Calcium 9.2 (8.5-10.1) mg/dL Total Bilirubin 1.8 H (0.2-1.0) mg/dL AST 34 (15-37) U/L ALT 36 (14-59) U/L Alkaline Phosphatase 76 (46-116) U/L Troponin I (0.00-0.056) ng/mL C-Reactive Protein 0.6 (<1.0) mg/dL Total Protein 6.8 (6.4-8.2) g/dl Albumin 3.4 (3.4-5.0) g/dl Globulin 3.4 gm/dL Albumin/Globulin Ratio 1.0 (1-2) Lipase 5 L (73-393) U/L Vitamin B12 393 (193-986) pg/ml 05/25/19 Range/Units 16:05 WBC (3.98-10.04) K/mm3 RBC (3.98-5.22) M/mm3 Hgb (11.2-15.7) gm/dl Hct (34.1-44.9) % MCV (79.4-94.8) fl MCH (25.6-32.2) pg MCHC (32.2-35.5) g/dl RDW Std Deviation (36.4-46.3) fL Plt Count (182-369) K/mm3 MPV (9.4-12.3) fl Neut % (Auto) (34.0-71.1) % Lymph % (Auto) (19.3-51.7) % [place] % (Auto) (4.7-12.5) % Eos % (Auto) (0.7-5.8) Baso % (Auto) (0.1-1.2) % Neut # (Auto) (1.56-6.13) K/mm3 Lymph # (Auto) (1.18-3.74) K/mm3 [place] # (Auto) (0.24-0.36) K/mm3 Eos # (Auto) (0.04-0.36) K/mm3 Baso # (Auto) (0.01-0.08) K/mm3 Sodium (136-145) mEq/L Potassium (3.5-5.1) mEq/L Chloride (98-107) mEq/L Carbon Dioxide (21-32) mEq/L Anion Gap (5-15) BUN (7-18) mg/dL Creatinine (0.55-1.02) mg/dL Est Cr Clr Drug Dosing mL/min Estimated GFR (MDRD) (>60) mL/min BUN/Creatinine Ratio (14-18) Glucose (74-106) mg/dL Calcium (8.5-10.1) mg/dL Total Bilirubin (0.2-1.0) mg/dL AST (15-37) U/L ALT (14-59) U/L Alkaline Phosphatase (46-116) U/L Troponin I < 0.017 (0.00-0.056) ng/mL C-Reactive Protein (<1.0) mg/dL Total Protein (6.4-8.2) g/dl Albumin (3.4-5.0) g/dl Globulin gm/dL Albumin/Globulin Ratio (1-2) Lipase (73-393) U/L Vitamin B12 (193-986) pg/ml Meds: Medications Generic Name Dose Route Start Last Admin Trade Name Freq PRN Reason Stop Dose Admin Dextrose/Sodium Chloride 1,000 mls @ 999 mls/hr 05/25/19 16:00 05/25/19 16:22 Dextrose 5%-Normal Saline IV 999 mls/hr ASDIRECTED JUSTEN Administration Discontinued Medications Generic Name Dose Route Start Last Admin Trade Name Freq PRN Reason Stop Dose Admin Hydromorphone HCl 0.5 mg 05/25/19 16:03 05/25/19 16:19 Dilaudid IVPUSH 05/25/19 16:04 0.5 mg ONETIME ONE Administration Hydromorphone HCl 0.5 mg 05/25/19 17:21 05/25/19 17:28 Dilaudid IVPUSH 05/25/19 17:22 0.5 mg ONETIME ONE Administration Hyoscyamine 0.125 mg 05/25/19 16:12 05/25/19 16:23 Hyomax-Sl SL 05/25/19 16:13 0.125 mg ONETIME ONE Administration Influenza Virus Vaccine 1 each 05/25/19 16:32 Pharmacy To Dose - Influenza Vaccine IM 05/25/19 16:33 ONETIME ONE Influenza Virus Vaccine 60 mcg 05/25/19 16:45 05/25/19 17:31 Fluzone Quad [id number] Syringe IM 05/25/19 16:46 60 mcg .ONCE ONE Administration Metoclopramide HCl 7.5 mg 05/25/19 16:02 05/25/19 16:17 Reglan IVPUSH 05/25/19 16:03 7.5 mg ONETIME ONE Administration - Radiology Interpretation Free Text/Narrative:: 48-year-old female presents the ED with diffuse epigastric abdominal pain rating along both costal margins and into her mid back. It also radiates slightly up into the lower retrosternal chest. It is worsened very slightly by deep breathing. On exam she is tender left upper quadrant epigastrium and less so on the right upper quadrant. 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 Patient hasn't been able to eat today due to the abdominal pressure discomfort. Patient feels if she could just burp she would feel better. Her symptoms are those of hiatal hernia. She believes this is happened a couple times in the past but perhaps not lasted near so long. Plan Levsin 0.125 mg sublingual now repeat in 10 minutes. IV will be started should be given Reglan 7.5 mg IV and Dilaudid 0.5 mg IV for nausea and pain relief. She will of a 2 view chest x-ray in the hopes of being able to see the hiatal hernia behind her heart. One view the abdomen will be done. Routine labs to include serum lipase and CRP. 5 that she is on could cause pancreatitis. I will order her B12 level since she has chronic diarrhea problems and is likely not absorbing it. He is to be on B12 shots but discontinued them over 6 months ago. - Re-Assessments/Exams Free Text/Narrative Re-Assessment/Exam: 05/25/19 17:11 3 views of the abdomen have been done. They do not reveal any signs of pathology. There are surgical clips right upper quadrant and evidence of mesh graft right lower quadrant of the abdomen. 2 views of the chest to suggest a small hiatal hernia retrocardiac area. 05/25/19 17:20 White count is normal at 9.79. Auto differential shows 65% neutrophils. Hemoglobin is 13.2 with hematocrit of 39.6. Platelet counts 166, 000. Troponin is less than 0.017 and B12 level is 393 --normal. Chemistry is pending. Patient states that she still having significant discomfort left upper quadrant of the abdomen. Will repeat Dilaudid 0.5 mg IV. Chemistry is pending and need to rule out pancreatitis. 05/25/19 18:01 Chemistry is now back showing a normal sodium 144. Potassium is 3.5. Chloride is 106 bicarbonate 28. And a gap is 13.5. The you and is 12 with a creatinine of 0.8. GFR is greater than 60. Glucose is 111 with a calcium of 9.2. Total bilirubin is elevated at 1.8. AST is 34 with a nail T of 36. Alk phosphatase also normal at 76. Troponin I is less than 0.017. C-reactive protein is 0.6. Total protein is 6.8 with an albumin fraction of 3.4. Lipase is 5. The lab certainly reveal that she does not have any evidence of pancreatitis. Clinically she has a hiatal hernia. Is improved after the last injection of Dilaudid. Is that she's going to need to set up for the next couple of days until this pain goes away. Plenty of fluids to way down the stomach and help relocate into the abdomen. I'll give her Bentyl 20 mg now and one every 6 hours until the pain goes away. Percocet tabs 12/09/24 one or 2 every 4-6 hours for pain not relieved by Bentyl alone. 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 Departure - Departure Time of Disposition: 18:08 Disposition: Home, Self-Care 01 Condition: Fair Clinical Impression: Hiatal hernia Abdominal pain Qualifiers: Abdominal location: left upper quadrant Qualified Code(s): R10.12 - Left upper quadrant pain - Discharge Information *PRESCRIPTION DRUG MONITORING PROGRAM REVIEWED*: Not Applicable *COPY OF PRESCRIPTION DRUG MONITORING REPORT IN PATIENT WHIT: Not Applicable Prescriptions: Dicyclomine [Bentyl] 20 mg PO Q6H PRN #8 tablet PRN Reason: Abdominal cramps/diarrhea oxyCODONE HCl/Acetaminophen [Percocet 5-325 mg Tablet] 1 - 2 each PO Q4H PRN # 12 tablet PRN Reason: pain relief. Instructions: Hiatal Hernia, Abdominal Pain, Adult, [id number] Referrals: Carlee Long MD [Primary Care Provider] - Forms: ED Department Discharge Additional Instructions: Evaluation the emergency room today in regards to development of diffuse epigastric left upper quadrant abdominal pain with slight radiation up anterior lower chest. This was present when he woke up this morning. Patient reveals tenderness in the left upper quadrant of the abdomen as well as in the epigastrium. He gets along the costal margin or lower ribs on both sides and anterior mid back. This pain syndrome is very characteristic of hiatal hernia pain. This means a loop of your stomach has herniated up through the diaphragm into the lower chest and has become stuck. Us causes the pain syndrome that you' re currently experiencing. You're treated in the ED with Levsin 0.125 mg tablets 2 sublingually which did not help her pain. You're therefore given Dilaudid 0.5 mg IV in 2 different doses to ease the pain. You're given Bentyl 20 mg by mouth before leaving the ED which is a muscle relaxant for the stomach and food pipe. This medication is to be continued one tablet every 6 hours until you are pain-free. Percocet tabs 5/325 mg may be taken one or 2 every 4-6 hours until the pain goes away completely as well. Suggest sitting up on the couch for at least 4 hours after eating and drinking food tonight. Plenty of fluids and water is heavy enough that it will help pull the stomach back down into the abdomen and relieve the pain. Eating oatmeal which is quite heavy will often help alleviate the pain as well. All of the other test turned out normal with no signs of peritonitis and no evidence of heart related disease. - My Orders Last 24 Hours: My Active Orders 05/25/19 16:00 Dextrose 5%-0.9% NaCl [Dextrose 5%-Normal Saline] 1,000 ml IV ASDIRECTED 05/25/19 16:05 EKG Documentation Completion [RC] STAT URINALYSIS W/MICROSCOPIC [UA W/MICROSCOPIC] [URIN] Stat 05/25/19 16:33 Influenza Vaccine Charge [] .DISCHARGE - Assessment/Plan Last 24 Hours: My Active Orders 05/25/19 16:00 Dextrose 5%-0.9% NaCl [Dextrose 5%-Normal Saline] 1,000 ml IV ASDIRECTED 05/25/19 16:05 EKG Documentation Completion [RC] STAT URINALYSIS W/MICROSCOPIC [UA W/MICROSCOPIC] [URIN] Stat 05/25/19 16:33 Influenza Vaccine Charge [RC] .DISCHARGE
[2019-05-25] MEDS ORDERED: Dextrose 5%-0.9% NaCl 1,000 ML IV SCH (16:00)
[2019-05-25] MEDS ORDERED: Metoclopramide 10 MG/2 ML SDV IVPUSH ONE (16:02)
[2019-05-25] MEDS ORDERED: HYDROmorphone 0.5 MG/0.5 ML Syringe IVPUSH ONE ×2 (16:03→17:21)
[2019-05-25] MEDS: Hyoscyamine 0.125 MG Tab.SL SL ONE ×2 (16:10→16:23)
[2019-05-25] MEDS ORDERED: FLU Vacc QS2019-20(6MOS+)/PF 60 MCG/0.5 ML SYRINGE IM ONE (16:45)
--- NOTE | 2019-05-25 17:36 | CR ---
Chest: Two views of the chest were obtained. Comparison: Prior chest x-ray of 11/18/17. Heart size and mediastinum are normal. Lungs are clear. Bony structures are unremarkable. Impression: 1. Nothing acute is seen on two-view chest x-ray. Diagnostic code #1
--- NOTE | 2019-05-25 17:38 | CR ---
Abdomen: Supine view of the abdomen was obtained. Comparison: Previous abdominal x-ray of 11/18/17. Bowel gas pattern is normal. Calcification is seen within the pelvis which is felt to be within normal limits. No acute bony abnormality is seen. Cholecystectomy is noted. Impression: 1. Findings which are felt to be incidental. Nothing acute is identified. Diagnostic code #2
[2019-05-25 18:14] VITALS: BP 104/54; PULSE 84
== END 2019-05-25 18:24 | disposition home or self-care (01) ==
LOC: JD.ED 15:35
DX: K44.9 Diaphragmatic hernia without obstruction or gangrene (principal); I10 Essential (primary) hypertension; E78.00 Pure hypercholesterolemia, unspecified; K21.9 Gastro-esophageal reflux disease without esophagitis; E11.9 Type 2 diabetes mellitus without complications; Z91.018 Allergy to other foods; Z79.899 Other long term (current) drug therapy; Z79.82 Long term (current) use of aspirin
CPT/HCPCS: 36415; 71046; 74018; 80053; 82607; 83690; 84484; 85025; 86140; 90471; 90686; 93005; 96361; 96374; 96375; 96376; 99284; A9270; J1170; J2765; J7042; 93010; G0008

== ENCOUNTER 2020-07-28 18:23 | Emergency (ER) | payer BC ==
[2020-07-28 19:21] VITALS: BP 111/62; PULSE 102
[2020-07-28] MEDS ORDERED: Sodium Chloride 0.9% 10 ML Syringe FLUSH PRN (19:25)
[2020-07-28] MEDS ORDERED: Ondansetron 4 MG/2 ML SDV IVPUSH ONE (19:26)
[2020-07-28] MEDS ORDERED: HYDROmorphone 0.5 MG/0.5 ML Syringe IVPUSH ONE ×2 (19:39→21:53)
[2020-07-28] MEDS ORDERED: Sodium Chloride 0.9% 1,000 ML IV SCH (19:45)
[2020-07-28] MEDS ORDERED: Potassium Chloride 10 MEQ in Premix Bag 1 BAG IV ONE (21:28)
--- NOTE | 2020-07-28 21:57 | EDM.PDOC ---
ED HPI GENERAL MEDICAL PROBLEM - General Chief Complaint: Respiratory Problem Stated Complaint: COVID+, SOB, FEVER, DIARRHEA Time Seen by Provider: 07/28/20 19:23 Source of Information: Reports: Patient, RN Notes Reviewed - History of Present Illness INITIAL COMMENTS - FREE TEXT/NARRATIVE: 50 yr old female with onset of covid sx 7 to 8 days ago. Continues with quite severe cough, [place], myalgias, nausea, difficulty eating and drinking and also short of breath with any exertion. Generalized Pain Score (Numeric/FACES): 7 - Related Data Allergies Allergy/AdvReac Type Severity Reaction Status Date / Time banana Allergy Nausea Verified 07/28/20 19:21 Home Meds: Home Meds Escitalopram [Lexapro] 20 mg PO DAILY 11/29/16 [History] atorvaSTATin [Lipitor] 20 mg PO BEDTIME 11/18/17 [History] valACYclovir HCl [Valacyclovir] 2,000 mg PO DAILY PRN 11/18/17 [History] ARIPiprazole [Aripiprazole] 5 mg PO DAILY 05/31/18 [History] Aspirin [Children's Aspirin] 81 mg PO DAILY 05/31/18 [History] Lisinopril 10 mg PO DAILY 05/31/18 [History] Omeprazole 20 mg PO DAILY 05/31/18 [History] Dicyclomine [Bentyl] 20 mg PO Q6H PRN #8 tablet 05/25/19 [Rx] oxyCODONE HCl/Acetaminophen [Percocet 5-325 mg Tablet] 1 - 2 each PO Q4H PRN #12 tablet 05/25/19 [Rx] Acetaminophen/HYDROcodone [[place] 325-5 MG] 1 tab PO Q6H PRN #14 tablet 07/28/20 [Rx] Ondansetron [Zofran ODT] 4 mg PO Q8HR PRN #7 tab.dis 07/28/20 [Rx] Potassium Chloride 10 meq PO DAILY #10 tablet.er 07/28/20 [Rx] Past Medical History HEENT History: Reports: Impaired Vision Other HEENT History: wears eyeglasses. 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 hysterectomy Neurological History: Reports: None Psychiatric History: Reports: Depression Endocrine/Metabolic History: Reports: Diabetes, Type II Other Endocrine/Metabolic History: recent diagnosis-nno meds yet Hematologic History: Reports: None Immunologic History: Reports: None Oncologic (Cancer) History: Reports: Cervix Dermatologic History: Reports: Other (See Below) Other Dermatologic History: cold sores - Infectious Disease History Infectious Disease History: Reports: Chicken Pox, Novel Coronavirus - Past Surgical History HEENT Surgical History: Reports: Oral Surgery, Tonsillectomy Cardiovascular Surgical History: Reports: None GI Surgical History: Reports: Cholecystectomy, Colonoscopy, Other (See Below) Other GI Surgeries/Procedures: knicked bowel during hysterectomy and had some bowel removed. Female Surgical History: Reports: Hysterectomy Endocrine Surgical History: Reports: None Neurological Surgical History: Reports: None Musculoskeletal Surgical History: Reports: Other (See Below) Other Musculoskeletal Surgeries/Procedures:: bilateral bunionectomy Oncologic Surgical History: Reports: None Dermatological Surgical History: Reports: None Social & Family History - Family History Cardiac: Reports: CAD - Tobacco Use Tobacco Use Status *Q: Never Tobacco User Second Hand Smoke Exposure: No - Caffeine Use Caffeine Use: Reports: None - Recreational Drug Use Recreational Drug Use: No - Living Situation & Occupation Living situation: Reports: Occupation: Employed ED ROS GENERAL - Review of Systems Review Of Systems: See Below Constitutional: Reports: Fever, Chills HEENT: Reports: Rhinitis Respiratory: Reports: Shortness of Breath, Cough Cardiovascular: Denies: Chest Pain Endocrine: Reports: Fatigue GI/Abdominal: Reports: Diarrhea, Decreased Appetite, Nausea. Denies: Vomiting Musculoskeletal: Reports: Other (generalized myalgias) Skin: Denies: Rash Neurological: Reports: Headache ED EXAM, GENERAL - Physical Exam Exam: See Below General Appearance: Alert, Mild Distress Head: Atraumatic. No: Facial Swelling Neck: Supple, Other (No JVD) Respiratory/Chest: Respiratory Distress (mild tachypnea). No: Rales, Rhonchi, Wheezing Cardiovascular: Tachycardia GI/Abdominal: Soft, Non-Tender Extremities: No Pedal Edema. No: Leg Pain, Increased Warmth, Redness Neurological: Alert, Oriented, No Motor/Sensory Deficits Skin Exam: Warm, Dry, Normal Color Course - Vital Signs Last Recorded V/S: Last Vital Signs Temp 98 F 07/28/20 19:17 Pulse 102 H 07/28/20 19:17 Resp 20 07/28/20 19:17 BP 111/62 07/28/20 19:17 Pulse Ox 91 L 07/28/20 20:01 - Orders/Labs/Meds Orders: Active Orders 24 hr Category Date Time Status Chest 1V Frontal [CR] Stat Exams 07/28/20 19:25 Taken Peripheral IV Insertion Adult [OM.PC] Stat Oth 07/28/20 19:26 Ordered Labs: Laboratory Tests 07/28/20 07/28/20 07/28/20 Range/Units 20:00 20:00 20:00 WBC 6.27 (3.98-10.04) K/mm3 RBC 4.77 (3.98-5.22) M/mm3 Hgb 13.1 (11.2-15.7) gm/dl Hct 39.6 (34.1-44.9) % MCV 83.0 (79.4-94.8) fl MCH 27.5 (25.6-32.2) pg MCHC 33.1 (32.2-35.5) g/dl RDW Std Deviation 41.2 (36.4-46.3) fL Plt Count 181 L (182-369) K/mm3 MPV 11.0 (9.4-12.3) fl Neut % (Auto) 64.2 (34.0-71.1) % Lymph % (Auto) 26.6 (19.3-51.7) % [place] % (Auto) 8.1 (4.7-12.5) % Eos % (Auto) 0.6 L (0.7-5.8) Baso % (Auto) 0.2 (0.1-1.2) % Neut # (Auto) 4.02 (1.56-6.13) K/mm3 Lymph # (Auto) 1.67 (1.18-3.74) K/mm3 [place] # (Auto) 0.51 H (0.24-0.36) K/mm3 Eos # (Auto) 0.04 (0.04-0.36) K/mm3 Baso # (Auto) 0.01 (0.01-0.08) K/mm3 Sodium 139 (136-145) mEq/L Potassium 3.0 L (3.5-5.1) mEq/L Chloride 103 (98-107) mEq/L Carbon Dioxide 25 (21-32) mEq/L Anion Gap 14.0 (5-15) BUN 18 (7-18) mg/dL Creatinine 1.5 H (0.55-1.02) mg/dL Est Cr Clr Drug Dosing 34.70 mL/min Estimated GFR (MDRD) 36 (>60) mL/min BUN/Creatinine Ratio 12.0 L (14-18) Glucose 122 H (74-106) mg/dL Calcium 8.3 L (8.5-10.1) mg/dL Total Bilirubin 1.6 H (0.2-1.0) mg/dL AST 77 H (15-37) U/L ALT 38 (14-59) U/L Alkaline Phosphatase 70 (46-116) U/L C-Reactive Protein 2.0 H* (<1.0) mg/dL Total Protein 7.2 (6.4-8.2) g/dl Albumin 3.0 L (3.4-5.0) g/dl Globulin 4.2 gm/dL Albumin/Globulin Ratio 0.7 L (1-2) Meds: Medications Discontinued Medications Generic Name Dose Route Start Last Admin Trade Name Freq PRN Reason Stop Dose Admin Hydromorphone HCl 0.5 mg 07/28/20 19:39 07/28/20 19:58 Dilaudid IVPUSH 07/28/20 19:40 0.5 mg ONETIME ONE Administration Hydromorphone HCl 0.5 mg 07/28/20 21:53 07/28/20 22:16 Dilaudid IVPUSH 07/28/20 21:54 0.5 mg ONETIME ONE Administration Sodium Chloride 1,000 mls @ 999 mls/hr 07/28/20 19:45 07/28/20 19:57 Normal Saline IV 999 mls/hr ONETIME JUSTEN Administration Potassium Chloride 10 meq/ 100 mls @ 50 mls/hr 07/28/20 21:28 07/28/20 21:36 Premix IV 07/28/20 23:27 50 mls/hr ASDIRECTED ONE Administration Ondansetron HCl 4 mg 07/28/20 19:26 07/28/20 19:57 Zofran IVPUSH 07/28/20 19:27 4 mg ONETIME ONE Administration Sodium Chloride 10 ml 07/28/20 19:25 07/28/20 19:57 Saline Flush FLUSH 10 ml ASDIRECTED PRN Administration Keep Vein Open - Re-Assessments/Exams Free Text/Narrative Re-Assessment/Exam: 07/29/20 03:46 CXR may show very mild R lateral infiltrate but believe this is mainly tissue shadow. sats 92 %. K+ low at 3.0, have given 10 meq KCL IV and some IV fluid. Have given IV zofran and IV dilaudid and she did feel better after that. Discharge instr. as documented. Departure - Departure Time of Disposition: 23:10 Disposition: Home, Self-Care 01 Condition: Fair Clinical Impression: COVID-19 virus infection, Hypokalemia Headache Qualifiers: Headache type: unspecified Headache chronicity pattern: acute headache Intractability: not intractable Qualified Code(s): R51.9 - Headache, unspecified - Discharge Information Prescriptions: Acetaminophen/HYDROcodone [[place] 325-5 MG] 1 tab PO Q6H PRN #14 tablet PRN Reason: Pain Potassium Chloride 10 meq PO DAILY #10 tablet.er Ondansetron [Zofran ODT] 4 mg PO Q8HR PRN #7 tab.dis PRN Reason: Nausea/Vomiting Instructions: COVID-19 Frequently Asked Questions Referrals: PCP,None [Primary Care Provider] - Forms: ED Department Discharge Additional Instructions: Rest. Continue to isolate. Zofran 4 mg ODT if needed for further nausea or vomiting. Tylenol for mild to moderate discomfort, hydrocodone if needed for severe discomfort. Prescriptions have been sent to [facility] electronically. Your potassium was low at 3.1. Try eat one or 2 bananas a day. When your stomach is back to normal try take potassium 10 meq daily for 10 days also prescribed. Return to ED for severe difficulty breathing or otherwise as needed. Sepsis Event Note (ED) - Evaluation Sepsis Screening Result: No Definite Risk - Focused Exam Vital Signs: Vital Signs Temp Pulse Resp BP Pulse Ox Pulse Ox 07/28/20 20:01 91 L 07/28/20 19:17 98 F 102 H 20 111/62 92 L - My Orders Last 24 Hours: My Active Orders 07/28/20 19:25 Chest 1V Frontal [CR] Stat 07/28/20 19:26 Peripheral IV Insertion Adult [OM.PC] Stat - Assessment/Plan Last 24 Hours: My Active Orders 07/28/20 19:25 Chest 1V Frontal [CR] Stat 07/28/20 19:26 Peripheral IV Insertion Adult [OM.PC] Stat
--- NOTE | 2020-07-29 11:14 | CR ---
Chest: Portable view of the chest was obtained. Comparison: Previous chest x-ray of 05/25/19. Heart size and mediastinum are normal. Patchy areas of vague density is noted within the right chest. Chest is otherwise clear. Bony structures are unremarkable. Impression: 1. Slight increased parenchymal density within the right chest most likely representing mild COVID pneumonia. Diagnostic code #3
== END 2020-07-29 00:15 | disposition home or self-care (01) ==
LOC: JD.ED 18:23
DX: U07.1 COVID-19 (principal); E87.6 Hypokalemia; R51.9 Headache, unspecified; I10 Essential (primary) hypertension; K21.9 Gastro-esophageal reflux disease without esophagitis; E78.00 Pure hypercholesterolemia, unspecified; E11.9 Type 2 diabetes mellitus without complications; Z91.018 Allergy to other foods; Z79.82 Long term (current) use of aspirin; Z79.899 Other long term (current) drug therapy; Z90.49 Acquired absence of other specified parts of digestive tract; Z90.710 Acquired absence of both cervix and uterus
CPT/HCPCS: 36415; 71045; 80053; 85025; 86140; 96365; 96366; 96375; 96376; 99285; J1170; J2405; J3480; J7030

== ENCOUNTER 2020-08-03 15:20 | Inpatient (IN) | payer BC ==
--- NOTE | 2020-08-03 16:20 | EDM.PDOC ---
ED HPI GENERAL MEDICAL PROBLEM - General Chief Complaint: Respiratory Problem Stated Complaint: COVID SYMPTOMS NOT GETTING BETTER Time Seen by Provider: 08/03/20 15:42 Source of Information: Reports: Patient, RN Notes Reviewed History Limitations: Reports: No Limitations - History of Present Illness INITIAL COMMENTS - FREE TEXT/NARRATIVE: Patient is a 50-year-old female presenting to the emergency department with complaints of ongoing Covid symptoms. Symptoms first began 2 weeks ago. She complains of shortness of breath, cough, headache, nausea, vomiting, diarrhea, and body aches. She was seen in this emergency department 6 days ago for similar complaints. She states after leaving here, she did improve slightly for a few days and then the symptoms worsened again. She denies shortness of breath at rest but states that anytime she moves around she does get short of breath and coughs. She feels that she is still getting intermittent fevers, however she does not check her temperatures at home. She continues to have nausea, vomiting, diarrhea. States she is unable to eat, however she is able to take in fluids well. She denies any significant chest pain. Vital signs on triage were stable. She was minimally tachycardic at 103. Respiratory rate 24. Oxygen saturation 97% on room air. She is afebrile at 97.3. Blood pressure stable at 104/89. - Related Data Allergies Allergy/AdvReac Type Severity Reaction Status Date / Time banana AdvReac Nausea Verified 08/03/20 15:39 Home Meds: Home Meds Escitalopram [Lexapro] 20 mg PO DAILY 11/29/16 [History] atorvaSTATin [Lipitor] 20 mg PO BEDTIME 11/18/17 [History] valACYclovir HCl [Valacyclovir] 2,000 mg PO DAILY PRN 11/18/17 [History] ARIPiprazole [Aripiprazole] 5 mg PO DAILY 05/31/18 [History] Aspirin [Children's Aspirin] 81 mg PO DAILY 05/31/18 [History] Lisinopril 10 mg PO DAILY 05/31/18 [History] Omeprazole 20 mg PO DAILY 05/31/18 [History] Dicyclomine [Bentyl] 20 mg PO Q6H PRN #8 tablet 05/25/19 [Rx] oxyCODONE HCl/Acetaminophen [Percocet 5-325 mg Tablet] 1 - 2 each PO Q4H PRN #12 tablet 05/25/19 [Rx] Ondansetron [Zofran ODT] 4 mg PO Q8HR PRN #7 tab.dis 07/28/20 [Rx] metFORMIN [Glucophage XR] 500 mg PO BID 08/03/20 [History] Magnesium Oxide [Magnesium] 400 mg PO DAILY #4 tablet 08/06/20 [Rx] Potassium Chloride 40 meq PO DAILY #8 tablet.er 08/06/20 [Rx] Past Medical History HEENT History: Reports: Impaired Vision Other HEENT History: wears eyeglasses. 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 hysterectomy Neurological History: Reports: None Psychiatric History: Reports: Depression Endocrine/Metabolic History: Reports: Diabetes, Type II, Obesity/BMI 30+ Other Endocrine/Metabolic History: recent diagnosis-nno meds yet Hematologic History: Reports: None Immunologic History: Reports: None Oncologic (Cancer) History: Reports: Cervix Dermatologic History: Reports: Other (See Below) Other Dermatologic History: cold sores - Infectious Disease History Infectious Disease History: Reports: Chicken Pox, Novel Coronavirus - Past Surgical History HEENT Surgical History: Reports: Oral Surgery, Tonsillectomy GI Surgical History: Reports: Cholecystectomy, Colonoscopy, Other (See Below) Other GI Surgeries/Procedures: knicked bowel during hysterectomy and had some bowel removed. Female Surgical History: Reports: Hysterectomy Musculoskeletal Surgical History: Reports: Other (See Below) Other Musculoskeletal Surgeries/Procedures:: bilateral bunionectomy Social & Family History - Family History Cardiac: Reports: CAD - Tobacco Use Tobacco Use Status *Q: Never Tobacco User - Caffeine Use Caffeine Use: Reports: None - Recreational Drug Use Recreational Drug Use: No - Living Situation & Occupation Living situation: Reports: Occupation: Employed ED ROS GENERAL - Review of Systems Review Of Systems: See Below Constitutional: Reports: Fever, Chills, Weakness, Fatigue HEENT: Reports: No Symptoms Respiratory: Reports: Shortness of Breath, Cough Cardiovascular: Reports: No Symptoms Endocrine: Reports: No Symptoms GI/Abdominal: Reports: Diarrhea, Nausea, Vomiting. Denies: Abdominal Pain : Reports: No Symptoms. Denies: Dysuria, Flank Pain Musculoskeletal: Reports: Other (generalized body aches) Skin: Reports: No Symptoms Neurological: Reports: No Symptoms Psychiatric: Reports: No Symptoms Hematologic/Lymphatic: Reports: No Symptoms Immunologic: Reports: No Symptoms ED EXAM, GENERAL - Physical Exam Exam: See Below General Appearance: Alert, WD/WN, No Apparent Distress Respiratory/Chest: No Respiratory Distress, Lungs Clear, Normal Breath Sounds, No Accessory Muscle Use, Chest Non-Tender Cardiovascular: Normal Peripheral Pulses, Regular Rate, Rhythm, No Edema, No Gallop, No JVD, No Murmur, No Rub GI/Abdominal: Normal Bowel Sounds, Soft, Non-Tender, No Organomegaly, No Distention, No Abnormal Bruit, No Mass Neurological: Alert, Oriented, CN II-XII Intact, Normal Cognition, Normal Gait, Normal Reflexes, No Motor/Sensory Deficits Psychiatric: Normal Affect, Normal Mood Skin Exam: Warm, Dry, Intact, Normal Color, No Rash #1 Interpretation EKG Date: 08/03/20 Time: 16:29 Rhythm: NSR Rate (Beats/Min): 101 [place]: Normal P-Wave: Present QRS: Normal ST-T: Normal QT: Prolonged Course - Vital Signs Last Recorded V/S: Last Vital Signs Temp 98.2 F 08/06/20 08:27 Pulse 71 08/06/20 08:27 Resp 18 08/06/20 08:27 BP 96/73 08/06/20 08:31 Pulse Ox 96 08/06/20 08:27 - Orders/Labs/Meds Labs: Laboratory Tests 08/03/20 08/03/20 08/03/20 Range/Units 16:00 16:00 16:00 WBC 8.03 (3.98-10.04) K/mm3 RBC 4.83 (3.98-5.22) M/mm3 Hgb 12.9 (11.2-15.7) gm/dl Hct 39.7 (34.1-44.9) % MCV 82.2 (79.4-94.8) fl MCH 26.7 (25.6-32.2) pg MCHC 32.5 (32.2-35.5) g/dl RDW Std Deviation 40.5 (36.4-46.3) fL Plt Count 287 D (182-369) K/mm3 MPV 10.1 (9.4-12.3) fl Neut % (Auto) 78.5 H (34.0-71.1) % Lymph % (Auto) 13.3 L (19.3-51.7) % [place] % (Auto) 6.8 (4.7-12.5) % Eos % (Auto) 0.9 (0.7-5.8) Baso % (Auto) 0.1 (0.1-1.2) % Neut # (Auto) 6.30 H (1.56-6.13) K/mm3 Lymph # (Auto) 1.07 L (1.18-3.74) K/mm3 [place] # (Auto) 0.55 H (0.24-0.36) K/mm3 Eos # (Auto) 0.07 (0.04-0.36) K/mm3 Baso # (Auto) 0.01 (0.01-0.08) K/mm3 Manual Slide Review Abnormal smear D-Dimer, Quantitative 1.18 H (0.19-0.50) mg/L Sodium 141 (136-145) mEq/L Potassium 2.5 L (3.5-5.1) mEq/L Chloride 101 (98-107) mEq/L Carbon Dioxide 28 (21-32) mEq/L Anion Gap 14.5 (5-15) BUN 10 (7-18) mg/dL Creatinine 1.2 H (0.55-1.02) mg/dL Est Cr Clr Drug Dosing 43.37 mL/min Estimated GFR (MDRD) 47 (>60) mL/min BUN/Creatinine Ratio 8.3 L (14-18) Glucose 114 H (74-106) mg/dL Calcium 8.9 (8.5-10.1) mg/dL Magnesium (1.8-2.4) mg/dl Ferritin (8-252) ng/ml Total Bilirubin 2.5 H (0.2-1.0) mg/dL AST 41 H (15-37) U/L ALT 33 (14-59) U/L Alkaline Phosphatase 95 (46-116) U/L Lactate Dehydrogenase 243 H (81-234) U/L Troponin I (0.00-0.056) ng/mL C-Reactive Protein 8.1 H* (<1.0) mg/dL Total Protein 7.6 (6.4-8.2) g/dl Albumin 3.0 L (3.4-5.0) g/dl Globulin 4.6 gm/dL Albumin/Globulin Ratio 0.7 L (1-2) 08/03/20 08/03/20 08/03/20 Range/Units 16:00 16:00 16:00 WBC (3.98-10.04) K/mm3 RBC (3.98-5.22) M/mm3 Hgb (11.2-15.7) gm/dl Hct (34.1-44.9) % MCV (79.4-94.8) fl MCH (25.6-32.2) pg MCHC (32.2-35.5) g/dl RDW Std Deviation (36.4-46.3) fL Plt Count (182-369) K/mm3 MPV (9.4-12.3) fl Neut % (Auto) (34.0-71.1) % Lymph % (Auto) (19.3-51.7) % [place] % (Auto) (4.7-12.5) % Eos % (Auto) (0.7-5.8) Baso % (Auto) (0.1-1.2) % Neut # (Auto) (1.56-6.13) K/mm3 Lymph # (Auto) (1.18-3.74) K/mm3 [place] # (Auto) (0.24-0.36) K/mm3 Eos # (Auto) (0.04-0.36) K/mm3 Baso # (Auto) (0.01-0.08) K/mm3 Manual Slide Review D-Dimer, Quantitative (0.19-0.50) mg/L Sodium (136-145) mEq/L Potassium (3.5-5.1) mEq/L Chloride (98-107) mEq/L Carbon Dioxide (21-32) mEq/L Anion Gap (5-15) BUN (7-18) mg/dL Creatinine (0.55-1.02) mg/dL Est Cr Clr Drug Dosing mL/min Estimated GFR (MDRD) (>60) mL/min BUN/Creatinine Ratio (14-18) Glucose (74-106) mg/dL Calcium (8.5-10.1) mg/dL Magnesium 1.3 L (1.8-2.4) mg/dl Ferritin 370 H (8-252) ng/ml Total Bilirubin (0.2-1.0) mg/dL AST (15-37) U/L ALT (14-59) U/L Alkaline Phosphatase (46-116) U/L Lactate Dehydrogenase (81-234) U/L Troponin I < 0.017 (0.00-0.056) ng/mL C-Reactive Protein (<1.0) mg/dL Total Protein (6.4-8.2) g/dl Albumin (3.4-5.0) g/dl Globulin gm/dL Albumin/Globulin Ratio (1-2) Meds: Medications Discontinued Medications Generic Name Dose Route Start Last Admin Trade Name Freq PRN Reason Stop Dose Admin Acetaminophen 650 mg 08/03/20 18:29 Tylenol PO Q4H PRN Pain (Mild 1-3)/fever Aripiprazole 5 mg 08/04/20 09:00 08/06/20 08:31 Abilify PO 5 mg DAILY JUSTEN Administration Aspirin 81 mg 08/04/20 09:00 08/06/20 08:31 Halfprin PO 81 mg DAILY JUSTEN Administration Citalopram Hydrobromide 40 mg 08/04/20 09:00 08/06/20 08:31 Celexa PO 40 mg DAILY JUSTEN Administration Dexamethasone 6 mg 08/03/20 18:45 08/03/20 19:56 Dexamethasone IV 6 mg DAILY JUSTEN Administration Dexamethasone 6 mg 08/04/20 09:00 08/05/20 08:27 Decadron IV 6 mg DAILY JUSTEN Administration Dexamethasone 6 mg 08/06/20 09:00 08/06/20 08:31 Dexamethasone PO 6 mg DAILY JUSTEN Administration Dicyclomine HCl 20 mg 08/03/20 18:38 08/04/20 17:36 Bentyl PO 20 mg Q6H PRN Administration Abdominal cramps/diarrhea Enoxaparin Sodium 40 mg 08/04/20 09:00 08/06/20 08:30 Lovenox SUBCUT 40 mg DAILY JUSTEN Administration Sodium Chloride 1,000 mls @ 150 mls/hr 08/03/20 16:48 08/03/20 17:08 Normal Saline IV 08/03/20 23:27 150 mls/hr NOW STA Administration Potassium Chloride 10 meq/ 100 mls @ 100 mls/hr 08/03/20 17:00 08/03/20 18:41 Premix IV 08/08/20 17:59 100 mls/hr ASDIRECTED JUSTEN Administration Magnesium Sulfate 4 gm/ Premix 50 mls @ 12.5 mls/hr 08/03/20 17:02 08/03/20 17:48 IV 08/03/20 21:01 12.5 mls/hr ONETIME ONE Administration Sodium Chloride 100 mls @ 60 mls/hr 08/03/20 17:30 08/03/20 18:01 Normal Saline IV 60 mls/hr ASDIRECTED JUSTEN Administration Sodium Chloride 1,000 mls @ 75 mls/hr 08/03/20 18:30 08/04/20 19:02 Normal Saline IV 75 mls/hr ASDIRECTED JUSTEN Administration Ceftriaxone Sodium 2 gm/ 100 mls @ 200 mls/hr 08/03/20 19:00 08/05/20 18:32 Sodium Chloride IV 200 mls/hr Q24H JUSTEN Administration Potassium Chloride 10 meq/ 100 mls @ 100 mls/hr 08/03/20 19:00 08/03/20 22:53 Premix IV 08/03/20 22:59 100 mls/hr Q1H JUSTEN Administration Magnesium Sulfate 2 gm in 50 mls @ 25 mls/hr 08/03/20 18:40 08/03/20 19:27 Magnesium Sulfate In Water Premix IV 08/03/20 20:39 Not Given ONETIME ONE Potassium Chloride 10 meq/ 100 mls @ 100 mls/hr 08/04/20 07:30 08/04/20 09:40 Premix IV 08/04/20 08:29 100 mls/hr ONETIME ONE Administration Potassium Chloride 10 meq/ 100 mls @ 100 mls/hr 08/05/20 08:30 08/05/20 13:16 Premix IV 08/05/20 12:29 100 mls/hr Q1H JUSTEN Administration Magnesium Sulfate 2 gm in 50 mls @ 25 mls/hr 08/06/20 07:15 08/06/20 08:26 Magnesium Sulfate In Water Premix IV 08/06/20 09:14 25 mls/hr ONETIME ONE Administration Insulin Human Lispro 0 unit 08/04/20 09:00 08/04/20 18:59 [facility]UT [facility] Insulin Human Lispro 0 unit 08/05/20 07:00 08/06/20 08:04 [facility] SUBCUT [facility] Insulin Human Regular 0 unit 08/03/20 19:00 08/03/20 21:07 [facility]ulin R [facility]BCUT [facility] Iopamidol 100 ml 08/03/20 17:29 08/03/20 18:00 Isovue-370 (76%) IVPUSH 08/03/20 17:30 100 ml ONETIME ONE Administration Lisinopril 10 mg 08/04/20 09:00 08/06/20 08:31 Prinivil PO 10 mg DAILY JUSTEN Administration Nystatin 2 gm 08/05/20 09:04 08/05/20 10:09 Nystatin Crm TOP 1 applic TID PRN Administration Rash Ondansetron HCl 4 mg 08/03/20 18:29 Zofran Odt PO Q6H PRN nausea, able to take PO Ondansetron HCl 4 mg 08/03/20 18:29 Zofran IV Q4H PRN Nausea/Vomiting Oxycodone HCl 5 mg 08/03/20 18:29 Oxycodone PO Q4H PRN Pain (moderate 4-6) Pantoprazole Sodium 40 mg 08/04/20 06:00 08/06/20 06:29 Protonix PO 40 mg ACBREAKFAST UJSTEN Administration Potassium Chloride 40 meq 08/05/20 08:30 08/05/20 08:31 Klor-Con M20 PO 08/05/20 08:31 40 meq ONETIME ONE Administration Potassium Chloride 20 meq 08/05/20 21:00 08/05/20 21:22 Klor-Con M20 PO 08/05/20 21:01 20 meq ONETIME ONE Administration Potassium Chloride 40 meq 08/06/20 09:00 08/06/20 08:30 Klor-Con M20 PO 08/06/20 09:01 40 meq ONETIME ONE Administration Simvastatin 20 mg 08/03/20 21:00 08/05/20 21:22 Zocor PO 20 mg BEDTIME JUSTEN Administration Sodium Chloride 10 ml 08/03/20 17:29 08/03/20 18:00 Saline Flush FLUSH 08/03/20 17:30 10 ml ONETIME ONE Administration Temazepam 15 mg 08/03/20 18:29 Restoril PO BEDTIME PRN Sleep - Re-Assessments/Exams Free Text/Narrative Re-Assessment/Exam: Patient is a 50-year-old female presenting to the emergency department with complaints of worsening symptoms of Covid. She is approximately 2 weeks into her illness. She complains of body aches, cough, shortness of breath, nausea, vomiting, diarrhea, and intermittent fevers. She was seen in this emergency department 6 days ago and states she felt better shortly and then symptoms returned. When she was seen in this emergency department previously, she was found to have a slightly low potassium at 3.1. She received 10 mEq of IV potassium at that time. She has been able to take in fluids but has not been eating. Vital signs in triage were stable. I have ordered CBC, CMP, CRP, D- dimer, troponin, magnesium, LDH, ferritin, chest x-ray, and EKG. 08/03/20 17:52 Hematology significant for D-dimer elevated at 1.18, potassium low at 2.5, creatinine 1.2, magnesium low at 1.3, ferritin 370, total bili 4.5, LDH 243, CRP 8.1. I have ordered CT angiogram of the chest to rule out PE. We will start IV fluids of NS at 150 mils per hour, potassium 10 mEq IV x6 bags, and magnesium 4 g IV. 08/03/20 18:15 Angiogram shows 1. Study limited by bolus timing. Difficult assessment of lobar and segmental pulmonary arterial branches. No definite pulmonary emboli. 2. Multifocal peripheral nodular groundglass opacities right greater than left. Findings concerning for multilobar pneumonia including atypical/viral etiologies. Spoke with hospitalist, Dr. Covarrubias. He will be over to see the patient. Departure - Departure Time of Disposition: 18:15 Disposition: Admitted As Inpatient 64 Condition: Good Clinical Impression: Hypokalemia, Pneumonia due to COVID-19 virus, Diabetes mellitus type 2 in obese - Discharge Information Sepsis Event Note (ED) - Evaluation Sepsis Screening Result: No Definite Risk
[2020-08-03] MEDS ORDERED: Sodium Chloride 0.9% 1,000 ML IV STA (16:48)
[2020-08-03] MEDS ORDERED: Magnesium Sulfate/Water 4 GM in Premix Bag 1 BAG IV ONE (17:02)
[2020-08-03] MEDS: Potassium Chloride 10 MEQ in Premix Bag 1 BAG IV SCH ×6 (17:08→22:53)
[2020-08-03] MEDS ORDERED: Iopamidol 755 Mg/ML 100 ML Bottle IVPUSH ONE (17:29)
[2020-08-03] MEDS ORDERED: Sodium Chloride 0.9% 10 ML Syringe FLUSH ONE (17:29)
[2020-08-03] MEDS ORDERED: Sodium Chloride 0.9% 100 ML IV SCH (17:30)
[2020-08-03] MEDS ORDERED: Temazepam 15 MG Cap PO PRN (18:29)
[2020-08-03] MEDS ORDERED: Ondansetron 4 MG/2 ML SDV IV PRN (18:29)
[2020-08-03] MEDS ORDERED: Ondansetron 4 MG Tab.DIS PO PRN (18:29)
[2020-08-03] MEDS ORDERED: oxyCODONE 5 MG Tab PO PRN (18:29)
[2020-08-03] MEDS ORDERED: Acetaminophen 325 MG Tab PO PRN (18:29)
[2020-08-03] MEDS ORDERED: Dicyclomine 10 MG Cap PO PRN (18:38)
[2020-08-03] MEDS ORDERED: Magnesium Sulfate/Water 2 GM/50 ML BAG IV ONE (18:40)
--- NOTE | 2020-08-03 18:41 | PCM.HP.2 ---
H&P History of Present Illness - General Date of Service: 08/03/20 Admit Problem/Dx: Admission Diagnosis/Problem Admission Diagnosis/Problem Pneumonia Source of Information: Patient, EMS Notes Reviewed History Limitations: Reports: No Limitations - History of Present Illness Initial Comments - Free Text/Narative: The patient is a 50-year-old lady who had presented to the emergency department with a complaint of ongoing Covid symptoms. The patient was diagnosed with COVID-19 approximately 2 weeks ago. The patient reports that she has had cough, shortness of breath and she has had nausea vomiting with diarrhea. Patient feels like she has been feverish while at home. The patient says that she has just not been getting any better. Due to the nausea and vomiting the patient has not been taking her home medications for her anxiety or depression. The patient also has been using Zofran at home and this is not helped her. The patient also has been taking aripiprazole, Lexapro, and lisinopril. The patient does have a history of sleep apnea. Onset of Symptoms: Reports: Gradual Duration of Symptoms: Reports: Week(s):, Getting Worse Location: Reports: Chest, Abdomen, Generalized Quality: Reports: Ache Severity: Moderate Improves with: Reports: Rest Worsens with: Reports: Eating Context: Reports: Other (COVID-19 diagnosed 2 weeks ago.) Associated Symptoms: Reports: Cough, Diaphoresis, Fever/Chills, Headaches, Loss of Appetite, Nausea/Vomiting - Related Data Allergies/Adverse Reactions: Allergies Allergy/AdvReac Type Severity Reaction Status Date / Time banana AdvReac Nausea Verified 08/03/20 15:39 Home Medications: Home Meds Escitalopram [Lexapro] 20 mg PO DAILY 11/29/16 [History] atorvaSTATin [Lipitor] 20 mg PO BEDTIME 11/18/17 [History] valACYclovir HCl [Valacyclovir] 2,000 mg PO DAILY PRN 11/18/17 [History] ARIPiprazole [Aripiprazole] 5 mg PO DAILY 05/31/18 [History] Aspirin [Children's Aspirin] 81 mg PO DAILY 05/31/18 [History] Lisinopril 10 mg PO DAILY 05/31/18 [History] Omeprazole 20 mg PO DAILY 05/31/18 [History] Dicyclomine [Bentyl] 20 mg PO Q6H PRN #8 tablet 05/25/19 [Rx] oxyCODONE HCl/Acetaminophen [Percocet 5-325 mg Tablet] 1 - 2 each PO Q4H PRN #12 tablet 05/25/19 [Rx] Ondansetron [Zofran ODT] 4 mg PO Q8HR PRN #7 tab.dis 07/28/20 [Rx] Potassium Chloride 10 meq PO DAILY #10 tablet.er 07/28/20 [Rx] metFORMIN [Glucophage XR] 500 mg PO BID 08/03/20 [History] Past Medical History HEENT History: Reports: Impaired Vision Other HEENT History: wears eyeglasses. Cardiovascular History: Reports: High Cholesterol, Hypertension Respiratory History: Reports: Sleep Apnea Other Respiratory History: tries to use C-PAP Gastrointestinal History: Reports: Chronic Diarrhea, GERD Genitourinary History: Reports: None PODIATRIC AIDE History: Reports: Other (See Below) Other OB/BYN History: infertality issues. hysterectomy Neurological History: Reports: None Psychiatric History: Reports: Depression Endocrine/Metabolic History: Reports: Diabetes, Type II, Obesity/BMI 30+ Other Endocrine/Metabolic History: recent diagnosis-nno meds yet Hematologic History: Reports: None Immunologic History: Reports: None Oncologic (Cancer) History: Reports: Cervix Dermatologic History: Reports: Other (See Below) Other Dermatologic History: cold sores - Infectious Disease History Infectious Disease History: Reports: Chicken Pox, Novel Coronavirus - Past Surgical History HEENT Surgical History: Reports: Oral Surgery, Tonsillectomy GI Surgical History: Reports: Cholecystectomy, Colonoscopy, Other (See Below) Other GI Surgeries/Procedures: knicked bowel during hysterectomy and had some bowel removed. Female Surgical History: Reports: Hysterectomy Musculoskeletal Surgical History: Reports: Other (See Below) Other Musculoskeletal Surgeries/Procedures:: bilateral bunionectomy Social & Family History - Family History Cardiac: Reports: CAD - Tobacco Use Tobacco Use Status *Q: Never Tobacco User - Caffeine Use Caffeine Use: Reports: None - Recreational Drug Use Recreational Drug Use: No - Living Situation & Occupation Living situation: Reports: Occupation: Employed H&P Review of Systems - Review of Systems: Review Of Systems: See Below General: Reports: Fever, Chills, Weakness HEENT: Reports: No Symptoms Pulmonary: Reports: Shortness of Breath, Wheezing, Cough. Denies: Sputum Cardiovascular: Reports: No Symptoms Gastrointestinal: Reports: Diarrhea, Nausea, Vomiting Genitourinary: Reports: No Symptoms Musculoskeletal: Reports: No Symptoms Skin: Reports: No Symptoms Psychiatric: Reports: No Symptoms Neurological: Reports: No Symptoms Hematologic/Lymphatic: Reports: No Symptoms Immunologic: Reports: No Symptoms Exam - Exam Exam: See Below - Vital Signs Vital Signs: Last Vital Signs Temp 36.3 C 08/03/20 15:36 Pulse 103 H 08/03/20 15:36 Resp 24 H 08/03/20 15:36 BP 104/89 08/03/20 15:36 Pulse Ox 97 08/03/20 15:36 Weight: 107.955 kg - Exam Quality Assessment: DVT Prophylaxis. No: Supplemental Oxygen General: Alert, Oriented, Cooperative, Other (Morbidly obese) HEENT: Conjunctiva Clear, EACs Clear, EOMI, Hearing Intact, Pupils Equal, Pupils Reactive, PERRLA. No: Mucosa Moist & [place] (Dry) Neck: Supple, Trachea Midline Lungs: Clear to Auscultation, Normal Respiratory Effort Cardiovascular: Regular Rate, Regular Rhythm GI/Abdominal Exam: Normal Bowel Sounds, Soft, Non-Tender, No Distention. No: Guarding, Rigid, Rebound (Female) Exam: Deferred Rectal (Female) Exam: Deferred Back Exam: Normal Inspection, Full Range of Motion Extremities: Normal Inspection, Normal Range of Motion, No Pedal Edema Skin: Warm, Dry, Intact Neurological: Cranial Nerves Intact Neuro Extensive - Mental Status: Alert, Oriented x3 Psychiatric: Alert, Normal Affect, Normal Mood - Patient Data Lab Results Last 24 hrs: Laboratory Results - last 24 hr 08/03/20 08/03/20 08/03/20 Range/Units 16:00 16:00 16:00 WBC 8.03 (3.98-10.04) K/mm3 RBC 4.83 (3.98-5.22) M/mm3 Hgb 12.9 (11.2-15.7) gm/dl Hct 39.7 (34.1-44.9) % MCV 82.2 (79.4-94.8) fl MCH 26.7 (25.6-32.2) pg MCHC 32.5 (32.2-35.5) g/dl RDW Std Deviation 40.5 (36.4-46.3) fL Plt Count 287 D (182-369) K/mm3 MPV 10.1 (9.4-12.3) fl Neut % (Auto) 78.5 H (34.0-71.1) % Lymph % (Auto) 13.3 L (19.3-51.7) % [place] % (Auto) 6.8 (4.7-12.5) % Eos % (Auto) 0.9 (0.7-5.8) Baso % (Auto) 0.1 (0.1-1.2) % Neut # (Auto) 6.30 H (1.56-6.13) K/mm3 Lymph # (Auto) 1.07 L (1.18-3.74) K/mm3 [place] # (Auto) 0.55 H (0.24-0.36) K/mm3 Eos # (Auto) 0.07 (0.04-0.36) K/mm3 Baso # (Auto) 0.01 (0.01-0.08) K/mm3 Manual Slide Review Abnormal smear D-Dimer, Quantitative 1.18 H (0.19-0.50) mg/L Sodium 141 (136-145) mEq/L Potassium 2.5 L (3.5-5.1) mEq/L Chloride 101 (98-107) mEq/L Carbon Dioxide 28 (21-32) mEq/L Anion Gap 14.5 (5-15) BUN 10 (7-18) mg/dL Creatinine 1.2 H (0.55-1.02) mg/dL Est Cr Clr Drug Dosing 43.37 mL/min Estimated GFR (MDRD) 47 (>60) mL/min BUN/Creatinine Ratio 8.3 L (14-18) Glucose 114 H (74-106) mg/dL Calcium 8.9 (8.5-10.1) mg/dL Magnesium (1.8-2.4) mg/dl Ferritin (8-252) ng/ml Total Bilirubin 2.5 H (0.2-1.0) mg/dL AST 41 H (15-37) U/L ALT 33 (14-59) U/L Alkaline Phosphatase 95 (46-116) U/L Lactate Dehydrogenase 243 H (81-234) U/L Troponin I (0.00-0.056) ng/mL C-Reactive Protein 8.1 H* (<1.0) mg/dL Total Protein 7.6 (6.4-8.2) g/dl Albumin 3.0 L (3.4-5.0) g/dl Globulin 4.6 gm/dL Albumin/Globulin Ratio 0.7 L (1-2) 08/03/20 08/03/20 08/03/20 Range/Units 16:00 16:00 16:00 WBC (3.98-10.04) K/mm3 RBC (3.98-5.22) M/mm3 Hgb (11.2-15.7) gm/dl Hct (34.1-44.9) % MCV (79.4-94.8) fl MCH (25.6-32.2) pg MCHC (32.2-35.5) g/dl RDW Std Deviation (36.4-46.3) fL Plt Count (182-369) K/mm3 MPV (9.4-12.3) fl Neut % (Auto) (34.0-71.1) % Lymph % (Auto) (19.3-51.7) % [place] % (Auto) (4.7-12.5) % Eos % (Auto) (0.7-5.8) Baso % (Auto) (0.1-1.2) % Neut # (Auto) (1.56-6.13) K/mm3 Lymph # (Auto) (1.18-3.74) K/mm3 [place] # (Auto) (0.24-0.36) K/mm3 Eos # (Auto) (0.04-0.36) K/mm3 Baso # (Auto) (0.01-0.08) K/mm3 Manual Slide Review D-Dimer, Quantitative (0.19-0.50) mg/L Sodium (136-145) mEq/L Potassium (3.5-5.1) mEq/L Chloride (98-107) mEq/L Carbon Dioxide (21-32) mEq/L Anion Gap (5-15) BUN (7-18) mg/dL Creatinine (0.55-1.02) mg/dL Est Cr Clr Drug Dosing mL/min Estimated GFR (MDRD) (>60) mL/min BUN/Creatinine Ratio (14-18) Glucose (74-106) mg/dL Calcium (8.5-10.1) mg/dL Magnesium 1.3 L (1.8-2.4) mg/dl Ferritin 370 H (8-252) ng/ml Total Bilirubin (0.2-1.0) mg/dL AST (15-37) U/L ALT (14-59) U/L Alkaline Phosphatase (46-116) U/L Lactate Dehydrogenase (81-234) U/L Troponin I < 0.017 (0.00-0.056) ng/mL C-Reactive Protein (<1.0) mg/dL Total Protein (6.4-8.2) g/dl Albumin (3.4-5.0) g/dl Globulin gm/dL Albumin/Globulin Ratio (1-2) Result Diagrams: 08/04/20 05:05 08/04/20 05:05 Sepsis Event Note - Evaluation Sepsis Screening Result: No Definite Risk - Focused Exam Vital Signs: Vital Signs Temp Pulse Resp BP Pulse Ox 08/03/20 15:36 36.3 C 103 H 24 H 104/89 97 - Problem List (1) Pneumonia due to COVID-19 virus SNOMED Code(s): 285660624005285331 ICD Code: U07.1 - COVID-19; J12.89 - OTHER VIRAL PNEUMONIA Status: Acute Priority: High Current Visit: Yes (2) COVID-19 virus infection SNOMED Code(s): 623733961 ICD Code: U07.1 - COVID-19 Status: Acute Priority: High Current Visit: Yes (3) Hypokalemia SNOMED Code(s): 44895275 ICD Code: E87.6 - HYPOKALEMIA Status: Acute Priority: High Current Visit: Yes (4) Intractable nausea and vomiting SNOMED Code(s): 871243575 ICD Code: R11.2 - NAUSEA WITH VOMITING, UNSPECIFIED Status: Acute Priority: High Current Visit: Yes (5) Morbid obesity with BMI of 40.0-44.9, adult SNOMED Code(s): 586226133, 36616861654786 ICD Code: E66.01 - MORBID (SEVERE) OBESITY DUE TO EXCESS CALORIES; Z68.41 - BODY MASS INDEX [BMI]40.0-44.9, ADULT Status: Chronic Priority: Medium Current Visit: Yes (6) Hypertension SNOMED Code(s): 63112716 ICD Code: I10 - ESSENTIAL (PRIMARY) HYPERTENSION Status: Chronic Priority: Medium Current Visit: Yes Qualifiers: Hypertension type: essential hypertension Qualified Code(s): I10 - Essential (primary) hypertension Problem List Initiated/Reviewed/Updated: Yes Orders Last 24hrs: Active Orders 24 hr Category Date Time Status Patient Status [ADT] Routine ADT 08/03/20 18:29 Ordered Blood Glucose Check, Bedside [RC] WITHMEALSANDBED Care 08/03/20 18:29 Ordered Diabetes Education [RC] Click to Edit Care 08/03/20 18:33 Ordered EKG Documentation Completion [RC] STAT Care 08/03/20 15:47 Active Oxygen Therapy [RC] PRN Care 08/03/20 18:29 Ordered Up ad Nati [RC] ASDIRECTED Care 08/03/20 18:29 Ordered VTE/DVT Education [RC] PER UNIT ROUTINE Care 08/03/20 18:29 Ordered Vital Signs [RC] Q4H Care 08/03/20 18:29 Ordered Consistent Carbohydrate Diet [DIET] Diet 08/04/20 Breakfast Ordered Chest 1V Frontal [CR] Stat Exams 08/03/20 15:48 Taken Chest PE [Ang Chest] [CT] Stat Exams 08/03/20 16:49 Taken CBC WITH AUTO DIFF [HEME] AM Lab 08/04/20 05:11 Ordered COMPREHENSIVE METABOLIC PN,CMP [CHEM] AM Lab 08/04/20 05:11 Ordered MAGNESIUM [CHEM] AM Lab 08/04/20 05:11 Ordered ARIPiprazole [Abilify] Med 08/04/20 09:00 Ordered 5 mg PO DAILY Acetaminophen [TylenoL] Med 08/03/20 18:29 Ordered 650 mg PO Q4H PRN Aspirin Med 08/04/20 09:00 Ordered 81 mg PO DAILY Dicyclomine Med 08/03/20 18:38 Ordered 20 mg PO Q6H PRN Enoxaparin [Lovenox] Med 08/04/20 09:00 Ordered 30 mg SUBCUT DAILY Escitalopram Med 08/04/20 09:00 Ordered 20 mg PO DAILY Insulin Regular, Human [HumuLIN R] Med 08/03/20 19:00 Ordered See Protocol SUBCUT TIDPC Magnesium Sulfate 2 GM in Water @ 25 MLS/HR ONETIME ( Med 08/03/20 18:40 Ordered 50ml) Magnesium Sulfate/Water [Magnesium Sulfate in Water Premix] 2 gm in 50 ml IV ONETIME Magnesium Sulfate/Water [Magnesium Sulfate in Water Med 08/03/20 17:02 Active Premix] 4 gm Premix Bag 1 bag IV ONETIME Omeprazole Med 08/04/20 09:00 Ordered 20 mg PO DAILY Ondansetron [Zofran ODT] Med 08/03/20 18:29 Ordered 4 mg PO Q6H PRN Ondansetron [Zofran] Med 08/03/20 18:29 Ordered 4 mg IV Q4H PRN Potassium Chloride [KCl 10 MEQ in Water 100 ML] 10 meq Med 08/03/20 17:00 Active Premix Bag 1 bag IV ASDIRECTED Potassium Chloride [KCl 10 MEQ in Water 100 ML] 10 meq Med 08/03/20 18:45 Ordered Premix Bag 1 bag IV Q1H Sodium Chloride 0.9% [Normal Saline] 1,000 ml Med 08/03/20 18:30 Ordered IV ASDIRECTED Sodium Chloride 0.9% [Normal Saline] 1,000 ml Med 08/03/20 16:48 Active IV NOW Sodium Chloride 0.9% [Normal Saline] 100 ml Med 08/03/20 17:30 Active IV ASDIRECTED Temazepam [Restoril] Med 08/03/20 18:29 Ordered 15 mg PO BEDTIME PRN atorvaSTATin Med 08/03/20 21:00 Ordered 20 mg PO BEDTIME cefTRIAXone [Rocephin] 2 gm Med 08/03/20 18:30 Ordered Sodium Chloride 0.9% [Normal Saline] 100 ml IV Q24H dexAMETHasone Med 08/03/20 18:45 Ordered 6 mg IV DAILY lisinopriL [Prinivil] Med 08/04/20 09:00 Ordered 10 mg PO DAILY oxyCODONE Med 08/03/20 18:29 Ordered 5 mg PO Q4H PRN Glucose Management Sub Q Reflex [OM.PC] Click to Edit Oth 08/03/20 18:29 Ordered Resuscitation Status Routine Resus Stat 08/03/20 18:29 Ordered Medication Orders Acetaminophen (Tylenol) 650 mg PO Q4H PRN PRN Reason: Pain (Mild 1-3)/fever Aripiprazole (Abilify) 5 mg PO DAILY JUSTEN Aspirin (Aspirin) 81 mg PO DAILY JUSTEN Dexamethasone (Dexamethasone) 6 mg IV DAILY [facility] Enoxaparin Sodium (Lovenox) 30 mg SUBCUT DAILY [facility] Sodium Chloride (Normal Saline) 1,000 mls @ 150 mls/hr IV NOW STA Stop: 08/03/20 23:27 Last Admin: 08/03/20 17:08 Dose: 150 mls/hr Documented by: INDER Potassium Chloride 10 meq/ (Premix) 100 mls @ 100 mls/hr IV ASDIRECTED JUSTEN Stop: 08/08/20 17:59 Last Admin: 08/03/20 17:08 Dose: 100 mls/hr Documented by: INDER Magnesium Sulfate 4 gm/ Premix 50 mls @ 12.5 mls/hr IV ONETIME ONE Stop: 08/03/20 21:01 Last Admin: 08/03/20 17:48 Dose: 12.5 mls/hr Documented by: BROOKE Sodium Chloride (Normal Saline) 100 mls @ 60 mls/hr IV ASDIRECTED [facility] Last Admin: 08/03/20 18:01 Dose: 60 mls/hr Documented by: LAUREN Sodium Chloride (Normal Saline) 1,000 mls @ 75 mls/hr IV ASDIRECTED [facility] Ceftriaxone Sodium 2 gm/ (Sodium Chloride) 100 mls @ 200 mls/hr IV Q24H [facility] Potassium Chloride 10 meq/ (Premix) 100 mls @ 100 mls/hr IV Q1H [facility] Stop: 08/03/20 22:44 Magnesium Sulfate (Magnesium Sulfate In Water Premix) 2 gm in 50 mls @ 25 mls/hr IV ONETIME ONE Stop: 08/03/20 20:39 Insulin Human Regular (Humulin R) 0 unit SUBCUT [facility]; Protocol Lisinopril (Prinivil) 10 mg PO DAILY [facility] Non-Formulary Medication (Atorvastatin) 20 mg PO BEDTIME [facility] Non-Formulary Medication (Dicyclomine) 20 mg PO Q6H PRN PRN Reason: Abdominal cramps/diarrhea Non-Formulary Medication (Escitalopram) 20 mg PO DAILY [facility] Non-Formulary Medication (Omeprazole) 20 mg PO DAILY [facility] Ondansetron HCl (Zofran Odt) 4 mg PO Q6H PRN PRN Reason: nausea, able to take PO Ondansetron HCl (Zofran) 4 mg IV Q4H PRN PRN Reason: Nausea/Vomiting Oxycodone HCl (Oxycodone) 5 mg PO Q4H PRN PRN Reason: Pain (moderate 4-6) Temazepam (Restoril) 15 mg PO BEDTIME PRN PRN Reason: Sleep Assessment/Plan Comment:: Patient is a 50-year-old lady who had been admitted primarily with intractable nausea and vomiting associated with her previous COVID-19 infection. The patient also has been treated with Reglan which has not worked for her. We will start the patient on Zofran 4 mg IV every 6 hours as needed for nausea and vomiting. She will also be on fluid support normal saline at 75 mL/h. Because of the GI losses the patient also has had hypokalemia and this electrolyte will be replaced along with magnesium. The patient also has been recommended for a consistent carbohydrate diet as tolerated. This was started secondary to the patient's hyperglycemia. Hemoglobin A1c has been ordered. It is likely that the patient is prediabetic. She will also have insulin coverage for her hyperglycemic excursions. The patient will be kept on her home medications for hypertension as well as her depression and anxiety. The patient further will have DVT prophylaxis with the use of Lovenox 40 mg subcu daily. The patient has been encouraged to ambulate. The patient should be appropriate for discharge in 1 to 2 days or after her symptoms have improved. - Mortality Measure Prognosis:: Good
[2020-08-03] MEDS ORDERED: Dexamethasone 4 MG/ML 5 ML MDV IV SCH (18:45)
[2020-08-03] MEDS ORDERED: Insulin Regular, Human 100 Units/ML 3 ML Vial SUBCUT SCH (19:00)
[2020-08-03] MEDS: cefTRIAXone 2 GM in Sodium Chloride 0.9% 100 ML IV SCH (19:57)
[2020-08-03] MEDS ORDERED: Non-Formulary Medication 1 Each (Atorvastatin 20 MG) PO SCH (21:00)
[2020-08-03] MEDS: Simvastatin 20 MG Tab PO SCH (21:06)
[2020-08-04] MEDS: Sodium Chloride 0.9% 1,000 ML IV SCH ×2 (06:04→19:02)
[2020-08-04] MEDS: Pantoprazole 40 MG Tab.CR PO SCH (06:04)
[2020-08-04] MEDS ORDERED: Potassium Chloride 10 MEQ in Premix Bag 1 BAG IV ONE (07:30)
[2020-08-04 08:43] LABS: HEMOGLOBIN A1C 7.6 % (4.50-6.20)
[2020-08-04] MEDS ORDERED: Non-Formulary Medication 1 Each (Omeprazole 20 MG) PO SCH (09:00)
[2020-08-04] MEDS ORDERED: Non-Formulary Medication 1 Each (Escitalopram 20 MG) PO SCH (09:00)
[2020-08-04] MEDS: Citalopram 20 MG Tab PO SCH (09:23)
[2020-08-04] MEDS: ARIPiprazole 5 MG Tab PO SCH (09:24)
[2020-08-04] MEDS: Aspirin 81 MG Tab.EC PO SCH (09:25)
[2020-08-04] MEDS: Lisinopril 10 MG Tab PO SCH (09:25)
[2020-08-04] MEDS: Enoxaparin 40 MG/0.4 ML Syringe SUBCUT SCH (09:29)
[2020-08-04] MEDS: Dexamethasone 4 MG/ML SDV IV SCH (09:33)
--- NOTE | 2020-08-04 09:37 | CT ---
CT chest Technique: Multiple axial sections were obtained from above the lung apices inferiorly to slightly below the dome of the liver. Intravenous contrast was utilized. Study has been performed as a pulmonary angiogram protocol. Findings: Pulmonary arteries are not optimally opacified. No definite filling defects within the main pulmonary arteries are seen. Smaller segmental or subsegmental pulmonary emboli could be missed. Thoracic aorta shows no aneurysm. Mediastinum shows no adenopathy. No pericardial thickening is appreciated. Patchy areas of nodular densities are seen peripherally within both lungs. Given the history of positive COVID, findings are most likely due to COVID pneumonia. No pleural effusions are seen. Bone window settings were reviewed which show no acute osseous finding. Slight degenerative spurring is noted within the spine. Impression: 1. Pulmonary arteries are not optimally opacified. No gross finding of pulmonary embolism within the main pulmonary arteries are seen. 2. Patchy areas of increased density within both lungs suspicious for COVID pneumonia. Diagnostic code #3 I agree with preliminary report from ad, finalized on 08/03/20, 7:03 PM [employer]
--- NOTE | 2020-08-04 11:15 | PCM.PN ---
- General Info Date of Service: 08/04/20 Admission Dx/Problem (Free Text): Admission Diagnosis/Problem Admission Diagnosis/Problem Pneumonia Subjective Update: The patient is a 50-year-old lady who is admitted to acute hospitalization yesterday due to continuing difficulties associated with her COVID-19 infection. She was diagnosed 2 weeks ago. She is outside of the window for appropriate antiviral treatment. The patient says that her previously noted nausea and vomiting has improved. She is still having diarrhea. Overall, the patient says that she feels better and she is denied any pain. She has been tolerating diabetic diet. Functional Status: Reports: Pain Controlled, Tolerating Diet - Review of Systems General: Reports: Weakness, Fatigue HEENT: Reports: No Symptoms Pulmonary: Reports: Shortness of Breath, Cough, Wheezing Cardiovascular: Reports: No Symptoms Gastrointestinal: Reports: Diarrhea, Nausea, Vomiting Genitourinary: Reports: No Symptoms Musculoskeletal: Reports: No Symptoms Skin: Reports: No Symptoms Neurological: Reports: No Symptoms Psychiatric: Reports: No Symptoms - Patient Data Vitals - Most Recent: Last Vital Signs Temp 36.6 C 08/04/20 06:04 Pulse 63 08/04/20 06:04 Resp 14 08/04/20 06:04 BP 115/79 08/04/20 09:25 Pulse Ox 95 08/04/20 06:04 Weight - Most Recent: 105.052 kg I&O - Last 24 Hours: Intake & Output 08/03/20 08/04/20 08/04/20 22:59 06:59 14:59 Intake Total 2075 240 Output Total 750 Balance 1325 240 Lab Results Last 24 Hours: Laboratory Results - last 24 hr 08/03/20 08/03/20 08/03/20 Range/Units 16:00 16:00 16:00 WBC 8.03 (3.98-10.04) K/mm3 RBC 4.83 (3.98-5.22) M/mm3 Hgb 12.9 (11.2-15.7) gm/dl Hct 39.7 (34.1-44.9) % MCV 82.2 (79.4-94.8) fl MCH 26.7 (25.6-32.2) pg MCHC 32.5 (32.2-35.5) g/dl RDW Std Deviation 40.5 (36.4-46.3) fL Plt Count 287 D (182-369) K/mm3 MPV 10.1 (9.4-12.3) fl Neut % (Auto) 78.5 H (34.0-71.1) % Lymph % (Auto) 13.3 L (19.3-51.7) % [place] % (Auto) 6.8 (4.7-12.5) % Eos % (Auto) 0.9 (0.7-5.8) Baso % (Auto) 0.1 (0.1-1.2) % Neut # (Auto) 6.30 H (1.56-6.13) K/mm3 Lymph # (Auto) 1.07 L (1.18-3.74) K/mm3 [place] # (Auto) 0.55 H (0.24-0.36) K/mm3 Eos # (Auto) 0.07 (0.04-0.36) K/mm3 Baso # (Auto) 0.01 (0.01-0.08) K/mm3 Manual Slide Review Abnormal smear D-Dimer, Quantitative 1.18 H (0.19-0.50) mg/L Sodium 141 (136-145) mEq/L Potassium 2.5 L (3.5-5.1) mEq/L Chloride 101 (98-107) mEq/L Carbon Dioxide 28 (21-32) mEq/L Anion Gap 14.5 (5-15) BUN 10 (7-18) mg/dL Creatinine 1.2 H (0.55-1.02) mg/dL Est Cr Clr Drug Dosing 43.37 mL/min Estimated GFR (MDRD) 47 (>60) mL/min BUN/Creatinine Ratio 8.3 L (14-18) Glucose 114 H (74-106) mg/dL POC Glucose (70-105) mg/dL Hemoglobin A1c (4.50-6.20) % Calcium 8.9 (8.5-10.1) mg/dL Magnesium (1.8-2.4) mg/dl Ferritin (8-252) ng/ml Total Bilirubin 2.5 H (0.2-1.0) mg/dL AST 41 H (15-37) U/L ALT 33 (14-59) U/L Alkaline Phosphatase 95 (46-116) U/L Lactate Dehydrogenase 243 H (81-234) U/L Troponin I (0.00-0.056) ng/mL C-Reactive Protein 8.1 H* (<1.0) mg/dL Total Protein 7.6 (6.4-8.2) g/dl Albumin 3.0 L (3.4-5.0) g/dl Globulin 4.6 gm/dL Albumin/Globulin Ratio 0.7 L (1-2) 08/03/20 08/03/20 08/03/20 Range/Units 16:00 16:00 16:00 WBC (3.98-10.04) K/mm3 RBC (3.98-5.22) M/mm3 Hgb (11.2-15.7) gm/dl Hct (34.1-44.9) % MCV (79.4-94.8) fl MCH (25.6-32.2) pg MCHC (32.2-35.5) g/dl RDW Std Deviation (36.4-46.3) fL Plt Count (182-369) K/mm3 MPV (9.4-12.3) fl Neut % (Auto) (34.0-71.1) % Lymph % (Auto) (19.3-51.7) % [place] % (Auto) (4.7-12.5) % Eos % (Auto) (0.7-5.8) Baso % (Auto) (0.1-1.2) % Neut # (Auto) (1.56-6.13) K/mm3 Lymph # (Auto) (1.18-3.74) K/mm3 [place] # (Auto) (0.24-0.36) K/mm3 Eos # (Auto) (0.04-0.36) K/mm3 Baso # (Auto) (0.01-0.08) K/mm3 Manual Slide Review D-Dimer, Quantitative (0.19-0.50) mg/L Sodium (136-145) mEq/L Potassium (3.5-5.1) mEq/L Chloride (98-107) mEq/L Carbon Dioxide (21-32) mEq/L Anion Gap (5-15) BUN (7-18) mg/dL Creatinine (0.55-1.02) mg/dL Est Cr Clr Drug Dosing mL/min Estimated GFR (MDRD) (>60) mL/min BUN/Creatinine Ratio (14-18) Glucose (74-106) mg/dL POC Glucose (70-105) mg/dL Hemoglobin A1c (4.50-6.20) % Calcium (8.5-10.1) mg/dL Magnesium 1.3 L (1.8-2.4) mg/dl Ferritin 370 H (8-252) ng/ml Total Bilirubin (0.2-1.0) mg/dL AST (15-37) U/L ALT (14-59) U/L Alkaline Phosphatase (46-116) U/L Lactate Dehydrogenase (81-234) U/L Troponin I < 0.017 (0.00-0.056) ng/mL C-Reactive Protein (<1.0) mg/dL Total Protein (6.4-8.2) g/dl Albumin (3.4-5.0) g/dl Globulin gm/dL Albumin/Globulin Ratio (1-2) 08/03/20 08/04/20 08/04/20 Range/Units 21:03 05:05 05:05 WBC 6.97 (3.98-10.04) K/mm3 RBC 4.45 (3.98-5.22) M/mm3 Hgb 12.1 (11.2-15.7) gm/dl Hct 35.8 (34.1-44.9) % MCV 80.4 (79.4-94.8) fl MCH 27.2 (25.6-32.2) pg MCHC 33.8 (32.2-35.5) g/dl RDW Std Deviation 39.9 (36.4-46.3) fL Plt Count 265 (182-369) K/mm3 MPV 10.3 (9.4-12.3) fl Neut % (Auto) 80.5 H (34.0-71.1) % Lymph % (Auto) 14.9 L (19.3-51.7) % [place] % (Auto) 4.4 L (4.7-12.5) % Eos % (Auto) 0.1 L (0.7-5.8) Baso % (Auto) 0.1 (0.1-1.2) % Neut # (Auto) 5.60 (1.56-6.13) K/mm3 Lymph # (Auto) 1.04 L (1.18-3.74) K/mm3 [place] # (Auto) 0.31 (0.24-0.36) K/mm3 Eos # (Auto) 0.01 L (0.04-0.36) K/mm3 Baso # (Auto) 0.01 (0.01-0.08) K/mm3 Manual Slide Review D-Dimer, Quantitative (0.19-0.50) mg/L Sodium 142 (136-145) mEq/L Potassium 3.2 L (3.5-5.1) mEq/L Chloride 105 (98-107) mEq/L Carbon Dioxide 26 (21-32) mEq/L Anion Gap 14.2 (5-15) BUN 12 (7-18) mg/dL Creatinine 1.0 (0.55-1.02) mg/dL Est Cr Clr Drug Dosing 52.05 mL/min Estimated GFR (MDRD) 58 (>60) mL/min BUN/Creatinine Ratio 12.0 L (14-18) Glucose 213 H (74-106) mg/dL POC Glucose 116 H (70-105) mg/dL Hemoglobin A1c (4.50-6.20) % Calcium 8.4 L (8.5-10.1) mg/dL Magnesium 2.8 H (1.8-2.4) mg/dl Ferritin (8-252) ng/ml Total Bilirubin 1.4 H (0.2-1.0) mg/dL AST 38 H (15-37) U/L ALT 26 (14-59) U/L Alkaline Phosphatase 86 (46-116) U/L Lactate Dehydrogenase (81-234) U/L Troponin I (0.00-0.056) ng/mL C-Reactive Protein (<1.0) mg/dL Total Protein 7.0 (6.4-8.2) g/dl Albumin 2.4 L (3.4-5.0) g/dl Globulin 4.6 gm/dL Albumin/Globulin Ratio 0.5 L (1-2) 08/04/20 08/04/20 Range/Units 05:05 06:02 WBC (3.98-10.04) K/mm3 RBC (3.98-5.22) M/mm3 Hgb (11.2-15.7) gm/dl Hct (34.1-44.9) % MCV (79.4-94.8) fl MCH (25.6-32.2) pg MCHC (32.2-35.5) g/dl RDW Std Deviation (36.4-46.3) fL Plt Count (182-369) K/mm3 MPV (9.4-12.3) fl Neut % (Auto) (34.0-71.1) % Lymph % (Auto) (19.3-51.7) % [place] % (Auto) (4.7-12.5) % Eos % (Auto) (0.7-5.8) Baso % (Auto) (0.1-1.2) % Neut # (Auto) (1.56-6.13) K/mm3 Lymph # (Auto) (1.18-3.74) K/mm3 [place] # (Auto) (0.24-0.36) K/mm3 Eos # (Auto) (0.04-0.36) K/mm3 Baso # (Auto) (0.01-0.08) K/mm3 Manual Slide Review D-Dimer, Quantitative (0.19-0.50) mg/L Sodium (136-145) mEq/L Potassium (3.5-5.1) mEq/L Chloride (98-107) mEq/L Carbon Dioxide (21-32) mEq/L Anion Gap (5-15) BUN (7-18) mg/dL Creatinine (0.55-1.02) mg/dL Est Cr Clr Drug Dosing mL/min Estimated GFR (MDRD) (>60) mL/min BUN/Creatinine Ratio (14-18) Glucose (74-106) mg/dL POC Glucose 220 H (70-105) mg/dL Hemoglobin A1c 7.60 H (4.50-6.20) % Calcium (8.5-10.1) mg/dL Magnesium (1.8-2.4) mg/dl Ferritin (8-252) ng/ml Total Bilirubin (0.2-1.0) mg/dL AST (15-37) U/L ALT (14-59) U/L Alkaline Phosphatase (46-116) U/L Lactate Dehydrogenase (81-234) U/L Troponin I (0.00-0.056) ng/mL C-Reactive Protein (<1.0) mg/dL Total Protein (6.4-8.2) g/dl Albumin (3.4-5.0) g/dl Globulin gm/dL Albumin/Globulin Ratio (1-2) Med Orders - Current: Current Medications Acetaminophen (Tylenol) 650 mg PO Q4H PRN PRN Reason: Pain (Mild 1-3)/fever Aripiprazole (Abilify) 5 mg PO DAILY [facility] Last Admin: 08/04/20 09:24 Dose: 5 mg Documented by: Aspirin (Halfprin) 81 mg PO DAILY [facility] Last Admin: 08/04/20 09:25 Dose: 81 mg Documented by: Citalopram Hydrobromide (Celexa) 40 mg PO DAILY [facility] Last Admin: 08/04/20 09:23 Dose: 40 mg Documented by: Dexamethasone (Decadron) 6 mg IV DAILY [facility] Last Admin: 08/04/20 09:33 Dose: 6 mg Documented by: Dicyclomine HCl (Bentyl) 20 mg PO Q6H PRN PRN Reason: Abdominal cramps/diarrhea Enoxaparin Sodium (Lovenox) 40 mg SUBCUT DAILY [facility] Last Admin: 08/04/20 09:29 Dose: 40 mg Documented by: Sodium Chloride (Normal Saline) 1,000 mls @ 75 mls/hr IV ASDIRECTED [facility] Last Admin: 08/04/20 06:04 Dose: 75 mls/hr Documented by: Ceftriaxone Sodium 2 gm/ (Sodium Chloride) 100 mls @ 200 mls/hr IV Q24H [facility] Last Admin: 08/03/20 19:57 Dose: 200 mls/hr Documented by: Insulin Human Lispro (Humalog) 0 [facility]; Protocol Last Admin: 08/04/20 09:26 Dose: 4 units Documented by: Lisinopril (Prinivil) 10 mg PO DAILY [facility] Last Admin: 08/04/20 09:25 Dose: 10 mg Documented by: Ondansetron HCl (Zofran Odt) 4 mg PO Q6H PRN PRN Reason: nausea, able to take PO Ondansetron HCl (Zofran) 4 mg IV Q4H PRN PRN Reason: Nausea/Vomiting Oxycodone HCl (Oxycodone) 5 mg PO Q4H PRN PRN Reason: Pain (moderate 4-6) Pantoprazole Sodium (Protonix) 40 mg PO ACBREAKFAST [facility] Last Admin: 08/04/20 06:04 Dose: 40 mg Documented by: Simvastatin (Zocor) 20 mg PO BEDTIME [facility] Last Admin: 08/03/20 21:06 Dose: 20 mg Documented by: Temazepam (Restoril) 15 mg PO BEDTIME PRN PRN Reason: Sleep Discontinued Medications Dexamethasone (Dexamethasone) 6 mg IV DAILY [facility] Last Admin: 08/03/20 19:56 Dose: 6 mg Documented by: Sodium Chloride (Normal Saline) 1,000 mls @ 150 mls/hr IV NOW STA Stop: 08/03/20 23:27 Last Admin: 08/03/20 17:08 Dose: 150 mls/hr Documented by: Potassium Chloride 10 meq/ (Premix) 100 mls @ 100 mls/hr IV ASDIRECTED [facility] Stop: 08/08/20 17:59 Last Admin: 08/03/20 18:41 Dose: 100 mls/hr Documented by: Magnesium Sulfate 4 gm/ Premix 50 mls @ 12.5 mls/hr IV ONETIME ONE Stop: 08/03/20 21:01 Last Admin: 08/03/20 17:48 Dose: 12.5 mls/hr Documented by: Sodium Chloride (Normal Saline) 100 mls @ 60 mls/hr IV ASDIRECTED [facility] Last Admin: 08/03/20 18:01 Dose: 60 mls/hr Documented by: Potassium Chloride 10 meq/ (Premix) 100 mls @ 100 mls/hr IV Q1H [facility] Stop: 08/03/20 22:59 Last Admin: 08/03/20 22:53 Dose: 100 mls/hr Documented by: Magnesium Sulfate (Magnesium Sulfate In Water Premix) 2 gm in 50 mls @ 25 m ls/hr IV ONETIME ONE Stop: 08/03/20 20:39 Last Admin: 08/03/20 19:27 Dose: Not Given Documented by: Potassium Chloride 10 meq/ (Premix) 100 mls @ 100 mls/hr IV ONETIME ONE Stop: 08/04/20 08:29 Last Admin: 08/04/20 09:40 Dose: 100 mls/hr Documented by: Insulin Human Regular (Humulin R) 0 unit SUBCUT [facility]; Protocol Last Admin: 08/03/20 21:07 Dose: Not Given Documented by: Iopamidol (Isovue-370 (76%)) 100 ml IVPUSH ONETIME ONE Stop: 08/03/20 17:30 Last Admin: 08/03/20 18:00 Dose: 100 ml Documented by: Sodium Chloride (Saline Flush) 10 ml FLUSH ONETIME ONE Stop: 08/03/20 17:30 Last Admin: 08/03/20 18:00 Dose: 10 ml Documented by: - Exam Quality Assessment: DVT Prophylaxis. No: Supplemental Oxygen General: Alert, Oriented, Cooperative, No Acute Distress, Other (Morbidly obese) HEENT: Pupils Equal, Pupils Reactive, EOMI, Mucous Membr. Moist/[place] Neck: Supple, Trachea Midline Lungs: Normal Respiratory Effort, Rales (Bibasilar) Cardiovascular: Regular Rate, Regular Rhythm GI/Abdominal Exam: Normal Bowel Sounds, Soft, Non-Tender, No Distention. No: Guarding, Rebound (Female) Exam: Deferred Back Exam: Normal Inspection, Full Range of Motion Extremities: Normal Inspection, Normal Range of Motion, No Pedal Edema Skin: Warm, Dry, Intact Neurological: No New Focal Deficit Psy/Mental Status: Alert, Normal Affect, Normal Mood Sepsis Event Note - Evaluation Sepsis Screening Result: No Definite Risk - Focused Exam Vital Signs: Vital Signs Temp Pulse Resp BP Pulse Ox 08/04/20 09:25 115/79 08/04/20 06:09 111/68 08/04/20 06:04 36.6 C 63 14 98/60 95 08/03/20 23:33 36.9 C 85 16 122/75 93 L - Problem List & Annotations (1) Pneumonia due to COVID-19 virus SNOMED Code(s): 753638393355827710 Code(s): U07.1 - COVID-19; J12.89 - OTHER VIRAL PNEUMONIA Status: Acute Priority: High Current Visit: Yes (2) COVID-19 virus infection SNOMED Code(s): 513041450 Code(s): U07.1 - COVID-19 Status: Acute Priority: High Current Visit: Yes (3) Diabetes mellitus type 2 in obese SNOMED Code(s): 37152973 Code(s): E11.69 - TYPE 2 DIABETES MELLITUS WITH OTHER SPECIFIED COMPLICATION; E66.9 - OBESITY, UNSPECIFIED Status: Chronic Priority: High Current Visit: Yes (4) Hypokalemia SNOMED Code(s): 04820720 Code(s): E87.6 - HYPOKALEMIA Status: Acute Priority: High Current Vis it: Yes (5) Intractable nausea and vomiting SNOMED Code(s): 682523158 Code(s): R11.2 - NAUSEA WITH VOMITING, UNSPECIFIED Status: Acute Priority: High Current Visit: Yes (6) Morbid obesity with BMI of 40.0-44.9, adult SNOMED Code(s): 838234492, 22090954143823 Code(s): E66.01 - MORBID (SEVERE) OBESITY DUE TO EXCESS CALORIES; Z68.41 - BODY MASS INDEX [BMI]40.0-44.9, ADULT Status: Chronic Priority: Medium Current Visit: Yes (7) Hypertension SNOMED Code(s): 93410346 Code(s): I10 - ESSENTIAL (PRIMARY) HYPERTENSION Status: Chronic Priority: Medium Current Visit: Yes Qualifiers: Hypertension type: essential hypertension Qualified Code(s): I10 - Essential (primary) hypertension - Problem List Review Problem List Initiated/Reviewed/Updated: Yes - My Orders Last 24 Hours: My Active Orders 08/03/20 18:29 Patient Status [ADT] Routine Blood Glucose Check, Bedside [RC] WITHMEALSANDBED Oxygen Therapy [RC] PRN Up ad Nati [RC] BID VTE/DVT Education [RC] DAILY Vital Signs [RC] Q4HR Acetaminophen [TylenoL] 650 mg PO Q4H PRN Ondansetron [Zofran ODT] 4 mg PO Q6H PRN Ondansetron [Zofran] 4 mg IV Q4H PRN Temazepam [Restoril] 15 mg PO BEDTIME PRN oxyCODONE 5 mg PO Q4H PRN Glucose Management Sub Q Reflex [OM.PC] Click to Edit Resuscitation Status Routine 08/03/20 18:30 Sodium Chloride 0.9% [Normal Saline] 1,000 ml IV ASDIRECTED 08/03/20 18:33 Diabetes Education [RC] Click to Edit 08/03/20 18:38 Dicyclomine [Bentyl] 20 mg PO Q6H PRN 08/03/20 19:00 cefTRIAXone [Rocephin] 2 gm Sodium Chloride 0.9% [Normal Saline] 100 ml IV Q24H 08/03/20 21:00 Simvastatin [Zocor] 20 mg PO BEDTIME 08/04/20 06:00 Pantoprazole [ProTONIX] 40 mg PO ACBREAKFAST 08/04/20 Breakfast Consistent Carbohydrate Diet [DIET] 08/04/20 09:00 ARIPiprazole [Abilify] 5 mg PO DAILY Aspirin [Halfprin] 81 mg PO DAILY Citalopram [Celexa] 40 mg PO DAILY Enoxaparin [Lovenox] 40 mg SUBCUT DAILY Insulin Lispro [HumaLOG] See Protocol SUBCUT TIDPC dexAMETHasone [Decadron] 6 mg IV DAILY lisinopriL [Prinivil] 10 mg PO DAILY - Plan Plan:: Patient is a 50-year-old lady who had been admitted primarily with intractable nausea and vomiting associated with her previous COVID-19 infection. The patient also has been treated with Reglan which has not worked for her. We will start the patient on Zofran 4 mg IV every 6 hours as needed for nausea and vomiting. She will also be on fluid support normal saline at 75 mL/h. Because of the GI losses the patient also has had hypokalemia and this electrolyte will be replaced along with magnesium. The patient also has been recommended for a consistent carbohydrate diet as tolerated. This was started secondary to the patient's hyperglycemia. Hemoglobin A1c has been ordered. It is likely that the patient is prediabetic. She will also have insulin coverage for her hyperglycemic excursions. The patient will be kept on her home medications for hypertension as well as her depression and anxiety. The patient further will have DVT prophylaxis with the use of Lovenox 40 mg subcu daily. The patient has been encouraged to ambulate. The patient should be appropriate for discharge in 1 to 2 days or after her symptoms have improved. 08/04/2020 The patient is a 50-year-old lady who was admitted for intractable nausea and vomiting that had been associated with COVID-19 infection. She has not required oxygen. The patient says that the nausea has improved and she will be continued on Zofran as necessary to help with her nausea. The patient also had a hemoglobin A1c which was completed and was noted to be at 7.6%. The patient says that she has been taking medication to prevent diabetes. The patient will be continued on the appropriate diabetic diet as well as insulin to help with her episodes of hyperglycemia. DVT prophylaxis will continue with Lovenox 40 mg subcutaneous daily. She is also on steroids and she will be transitioned to oral steroids tomorrow. The patient will likely be appropriate for discharge in 1 to 2 days depending upon her symptoms as well as her electrolytes. The patient's magnesium and potassium have been replaced. Repeat laboratory studies have been ordered. She has been encouraged to ambulate.
[2020-08-04] MEDS: cefTRIAXone 2 GM in Sodium Chloride 0.9% 100 ML IV SCH (18:59)
[2020-08-04] MEDS: Simvastatin 20 MG Tab PO SCH (20:53)
[2020-08-05] MEDS: Pantoprazole 40 MG Tab.CR PO SCH (05:57)
--- NOTE | 2020-08-05 07:43 | PCM.PN ---
- General Info Date of Service: 08/05/20 Admission Dx/Problem (Free Text): Admission Diagnosis/Problem Admission Diagnosis/Problem Pneumonia Functional Status: Reports: Pain Controlled, Tolerating Diet, Ambulating, Urinating. Denies: New Symptoms - Review of Systems General: Reports: No Symptoms. Denies: Fever, Weakness, Fatigue, Malaise, Chills HEENT: Reports: No Symptoms. Denies: Headaches, Sore Throat Pulmonary: Reports: No Symptoms. Denies: Shortness of Breath, Cough, Sputum, Wheezing Cardiovascular: Reports: Dyspnea on Exertion. Denies: Chest Pain, Palpitations, Edema Gastrointestinal: Reports: Diarrhea (Reports this is chronic for her. ). Denies: Abdominal Pain, Constipation, Nausea, Vomiting Genitourinary: Reports: No Symptoms. Denies: Pain Musculoskeletal: Reports: No Symptoms Skin: Reports: No Symptoms. Denies: Cyanosis Neurological: Reports: No Symptoms. Denies: Confusion, Difficulty Walking, Gait Disturbance Psychiatric: Reports: No Symptoms - Patient Data Vitals - Most Recent: Last Vital Signs Temp 97.9 F 08/05/20 04:41 Pulse 57 L 08/05/20 04:41 Resp 18 08/05/20 00:03 BP 106/71 08/05/20 04:44 Pulse Ox 95 08/05/20 04:41 Weight - Most Recent: 236 lb 1.6 oz I&O - Last 24 Hours: Intake & Output 08/04/20 08/05/20 08/05/20 22:59 06:59 14:59 Intake Total 1580 1300 Output Total 700 850 Balance 880 450 Lab Results Last 24 Hours: Laboratory Results - last 24 hr 08/04/20 08/04/20 08/04/20 Range/Units 05:05 11:45 16:55 WBC (3.98-10.04) K/mm3 RBC (3.98-5.22) M/mm3 Hgb (11.2-15.7) gm/dl Hct (34.1-44.9) % MCV (79.4-94.8) fl MCH (25.6-32.2) pg MCHC (32.2-35.5) g/dl RDW Std Deviation (36.4-46.3) fL Plt Count (182-369) K/mm3 MPV (9.4-12.3) fl Neut % (Auto) (34.0-71.1) % Lymph % (Auto) (19.3-51.7) % [place] % (Auto) (4.7-12.5) % Eos % (Auto) (0.7-5.8) Baso % (Auto) (0.1-1.2) % Neut # (Auto) (1.56-6.13) K/mm3 Lymph # (Auto) (1.18-3.74) K/mm3 [place] # (Auto) (0.24-0.36) K/mm3 Eos # (Auto) (0.04-0.36) K/mm3 Baso # (Auto) (0.01-0.08) K/mm3 Manual Slide Review Sodium (136-145) mEq/L Potassium (3.5-5.1) mEq/L Chloride (98-107) mEq/L Carbon Dioxide (21-32) mEq/L Anion Gap (5-15) BUN (7-18) mg/dL Creatinine (0.55-1.02) mg/dL Est Cr Clr Drug Dosing mL/min Estimated GFR (MDRD) (>60) mL/min BUN/Creatinine Ratio (14-18) Glucose (74-106) mg/dL POC Glucose 175 H 228 H (70-105) mg/dL Hemoglobin A1c 7.60 H (4.50-6.20) % Calcium (8.5-10.1) mg/dL Magnesium (1.8-2.4) mg/dl C-Reactive Protein (<1.0) mg/dL 08/04/20 08/05/20 08/05/20 Range/Units 21:02 05:53 05:53 WBC 10.99 H (3.98-10.04) K/mm3 RBC 4.08 (3.98-5.22) M/mm3 Hgb 11.0 L (11.2-15.7) gm/dl Hct 34.5 (34.1-44.9) % MCV 84.6 D (79.4-94.8) fl MCH 27.0 (25.6-32.2) pg MCHC 31.9 L (32.2-35.5) g/dl RDW Std Deviation 41.6 (36.4-46.3) fL Plt Count 289 (182-369) K/mm3 MPV 11.2 (9.4-12.3) fl Neut % (Auto) 79.2 H (34.0-71.1) % Lymph % (Auto) 11.6 L (19.3-51.7) % [place] % (Auto) 7.8 (4.7-12.5) % Eos % (Auto) 0.1 L (0.7-5.8) Baso % (Auto) 0.1 (0.1-1.2) % Neut # (Auto) 8.71 H (1.56-6.13) K/mm3 Lymph # (Auto) 1.27 (1.18-3.74) K/mm3 [place] # (Auto) 0.86 H (0.24-0.36) K/mm3 Eos # (Auto) 0.01 L (0.04-0.36) K/mm3 Baso # (Auto) 0.01 (0.01-0.08) K/mm3 Manual Slide Review Normal smear Sodium 143 (136-145) mEq/L Potassium 2.8 L (3.5-5.1) mEq/L Chloride 110 H (98-107) mEq/L Carbon Dioxide 23 (21-32) mEq/L Anion Gap 12.8 (5-15) BUN 17 (7-18) mg/dL Creatinine 1.1 H (0.55-1.02) mg/dL Est Cr Clr Drug Dosing 47.32 mL/min Estimated GFR (MDRD) 52 (>60) mL/min BUN/Creatinine Ratio 15.5 (14-18) Glucose 182 H (74-106) mg/dL POC Glucose 181 H (70-105) mg/dL Hemoglobin A1c (4.50-6.20) % Calcium 8.3 L (8.5-10.1) mg/dL Magnesium 2.2 (1.8-2.4) mg/dl C-Reactive Protein 3.5 H* (<1.0) mg/dL 08/05/20 Range/Units 05:55 WBC (3.98-10.04) K/mm3 RBC (3.98-5.22) M/mm3 Hgb (11.2-15.7) gm/dl Hct (34.1-44.9) % MCV (79.4-94.8) fl MCH (25.6-32.2) pg MCHC (32.2-35.5) g/dl RDW Std Deviation (36.4-46.3) fL Plt Count (182-369) K/mm3 MPV (9.4-12.3) fl Neut % (Auto) (34.0-71.1) % Lymph % (Auto) (19.3-51.7) % [place] % (Auto) (4.7-12.5) % Eos % (Auto) (0.7-5.8) Baso % (Auto) (0.1-1.2) % Neut # (Auto) (1.56-6.13) K/mm3 Lymph # (Auto) (1.18-3.74) K/mm3 [place] # (Auto) (0.24-0.36) K/mm3 Eos # (Auto) (0.04-0.36) K/mm3 Baso # (Auto) (0.01-0.08) K/mm3 Manual Slide Review Sodium (136-145) mEq/L Potassium (3.5-5.1) mEq/L Chloride (98-107) mEq/L Carbon Dioxide (21-32) mEq/L Anion Gap (5-15) BUN (7-18) mg/dL Creatinine (0.55-1.02) mg/dL Est Cr Clr Drug Dosing mL/min Estimated GFR (MDRD) (>60) mL/min BUN/Creatinine Ratio (14-18) Glucose (74-106) mg/dL POC Glucose 187 H (70-105) mg/dL Hemoglobin A1c (4.50-6.20) % Calcium (8.5-10.1) mg/dL Magnesium (1.8-2.4) mg/dl C-Reactive Protein (<1.0) mg/dL Med Orders - Current: Current Medications Acetaminophen (Tylenol) 650 mg PO Q4H PRN PRN Reason: Pain (Mild 1-3)/fever Aripiprazole (Abilify) 5 mg PO DAILY [facility] Last Admin: 08/04/20 09:24 Dose: 5 mg Documented by: Aspirin (Halfprin) 81 mg PO DAILY [facility] Last Admin: 08/04/20 09:25 Dose: 81 mg Documented by: Citalopram Hydrobromide (Celexa) 40 mg PO DAILY [facility] Last Admin: 08/04/20 09:23 Dose: 40 mg Documented by: Dexamethasone (Decadron) 6 mg IV DAILY [facility] Last Admin: 08/04/20 09:33 Dose: 6 mg Documented by: Dicyclomine HCl (Bentyl) 20 mg PO Q6H PRN PRN Reason: Abdominal cramps/diarrhea Last Admin: 08/04/20 17:36 Dose: 20 mg Documented by: Enoxaparin Sodium (Lovenox) 40 mg SUBCUT DAILY [facility] Last Admin: 08/04/20 09:29 Dose: 40 mg Documented by: Sodium Chloride (Normal Saline) 1,000 mls @ 75 mls/hr IV ASDIRECTED [facility] Last Admin: 08/04/20 19:02 Dose: 75 mls/hr Documented by: Ceftriaxone Sodium 2 gm/ (Sodium Chloride) 100 mls @ 200 mls/hr IV Q24H [facility] Last Admin: 08/04/20 18:59 Dose: 200 mls/hr Documented by: Insulin Human Lispro (Humalog) 0 unit SUBCUT TIDAC [facility]; Protocol Lisinopril (Prinivil) 10 mg PO DAILY [facility] Last Admin: 08/04/20 09:25 Dose: 10 mg Documented by: Ondansetron HCl (Zofran Odt) 4 mg PO Q6H PRN PRN Reason: nausea, able to take PO Ondansetron HCl (Zofran) 4 mg IV Q4H PRN PRN Reason: Nausea/Vomiting Oxycodone HCl (Oxycodone) 5 mg PO Q4H PRN PRN Reason: Pain (moderate 4-6) Pantoprazole Sodium (Protonix) 40 mg PO ACBREAKFAST [facility] Last Admin: 08/05/20 05:57 Dose: 40 mg Documented by: Simvastatin (Zocor) 20 mg PO BEDTIME [facility] Last Admin: 08/04/20 20:53 Dose: 20 mg Documented by: Temazepam (Restoril) 15 mg PO BEDTIME PRN PRN Reason: Sleep Discontinued Medications Dexamethasone (Dexamethasone) 6 mg IV DAILY [facility] Last Admin: 08/03/20 19:56 Dose: 6 mg Documented by: Sodium Chloride (Normal Saline) 1,000 mls @ 150 mls/hr IV NOW STA Stop: 08/03/20 23:27 Last Admin: 08/03/20 17:08 Dose: 150 mls/hr Documented by: Potassium Chloride 10 meq/ (Premix) 100 mls @ 100 mls/hr IV ASDIRECTED JUSTEN Stop: 08/08/20 17:59 Last Admin: 08/03/20 18:41 Dose: 100 mls/hr Documented by: Magnesium Sulfate 4 gm/ Premix 50 mls @ 12.5 mls/hr IV ONETIME ONE Stop: 08/03/20 21:01 Last Admin: 08/03/20 17:48 Dose: 12.5 mls/hr Documented by: Sodium Chloride (Normal Saline) 100 mls @ 60 mls/hr IV ASDIRECTED [facility] Last Admin: 08/03/20 18:01 Dose: 60 mls/hr Documented by: Potassium Chloride 10 meq/ (Premix) 100 mls @ 100 mls/hr IV Q1H JUSTEN Stop: 08/03/20 22:59 Last Admin: 08/03/20 22:53 Dose: 100 mls/hr Documented by: Magnesium Sulfate (Magnesium Sulfate In Water Premix) 2 gm in 50 mls @ 25 mls/hr IV ONETIME ONE Stop: 08/03/20 20:39 Last Admin: 08/03/20 19:27 Dose: Not Given Documented by: Potassium Chloride 10 meq/ (Premix) 100 mls @ 100 mls/hr IV ONETIME ONE Stop: 08/04/20 08:29 Last Admin: 08/04/20 09:40 Dose: 100 mls/hr Documented by: Insulin Human Lispro (Humalog) 0 unit SUBCUT [facility]; Protocol Last Admin: 08/04/20 18:59 Dose: Not Given Documented by: Insulin Human Regular (Humulin R) 0 unit SUBCUT [facility]; Protocol Last Admin: 08/03/20 21:07 Dose: Not Given Documented by: Iopamidol (Isovue-370 (76%)) 100 ml IVPUSH ONETIME ONE Stop: 08/03/20 17:30 Last Admin: 08/03/20 18:00 Dose: 100 ml Documented by: Sodium Chloride (Saline Flush) 10 ml FLUSH ONETIME ONE Stop: 08/03/20 17:30 Last Admin: 08/03/20 18:00 Dose: 10 ml Documented by: - Exam Quality Assessment: DVT Prophylaxis. No: Supplemental Oxygen, Urine Catheter General: Alert, Oriented, Cooperative, No Acute Distress HEENT: Pupils Equal, Pupils Reactive, Mucous Membr. Moist/[place] Neck: Supple, Trachea Midline Lungs: Normal Respiratory Effort, Decreased Breath Sounds Cardiovascular: Regular Rate, Regular Rhythm GI/Abdominal Exam: Normal Bowel Sounds, Soft, Non-Tender, No Distention (Female) Exam: Deferred Back Exam: Normal Inspection, Full Range of Motion Extremities: Normal Inspection, Normal Range of Motion, Non-Tender, No Pedal Edema, Normal Capillary Refill Skin: Warm, Dry, Intact Neurological: No New Focal Deficit Psy/Mental Status: Alert, Normal Affect, Normal Mood Sepsis Event Note - Evaluation Sepsis Screening Result: No Definite Risk - Focused Exam Vital Signs: Vital Signs Temp Pulse Resp BP BP Pulse Ox 08/05/20 04:44 106/71 08/05/20 04:41 97.9 F 57 L 95 08/05/20 00:21 92/50 L 08/05/20 00:03 98.2 F 59 L 18 97 08/04/20 20:11 97.7 F 69 20 98/63 96 - Problem List & Annotations (1) COVID-19 virus infection SNOMED Code(s): 629696159 Code(s): U07.1 - COVID-19 Status: Acute Priority: High Current Visit: Yes (2) Hypokalemia SNOMED Code(s): 43549715 Code(s): E87.6 - HYPOKALEMIA Status: Acute Priority: High Current Visit: Yes (3) Intractable nausea and vomiting SNOMED Code(s): 261256821 Code(s): R11.2 - NAUSEA WITH VOMITING, UNSPECIFIED Status: Resolved Priority: High Current Visit: Yes (4) Diabetes mellitus type 2 in obese SNOMED Code(s): 76019608 Code(s): E11.69 - TYPE 2 DIABETES MELLITUS WITH OTHER SPECIFIED COMPLICATION; E66.9 - OBESITY, UNSPECIFIED Status: Chronic Priority: High Current Visit: Yes (5) Hypertension SNOMED Code(s): 80745622 Code(s): I10 - ESSENTIAL (PRIMARY) HYPERTENSION Status: Chronic Priority: Medium Current Visit: Yes Qualifiers: Hypertension type: essential hypertension Qualified Code(s): I10 - Essential (primary) hypertension (6) Morbid obesity with BMI of 40.0-44.9, adult SNOMED Code(s): 541844754, 72590923286063 Code(s): E66.01 - MORBID (SEVERE) OBESITY DUE TO EXCESS CALORIES; Z68.41 - BODY MASS INDEX [BMI]40.0-44.9, ADULT Status: Chronic Priority: Medium Current Visit: Yes - Problem List Review Problem List Initiated/Reviewed/Updated: Yes - Plan Plan:: Patient is a 50-year-old lady who had been admitted primarily with intractable nausea and vomiting associated with her previous COVID-19 infection. The patient also has been treated with Reglan which has not worked for her. We will start the patient on Zofran 4 mg IV every 6 hours as needed for nausea and vomiting. She will also be on fluid support normal saline at 75 mL/h. Because of the GI losses the patient also has had hypokalemia and this electrolyte will be replaced along with magnesium. The patient also has been recommended for a consistent carbohydrate diet as tolerated. This was started secondary to the patient's hyperglycemia. Hemoglobin A1c has been ordered. It is likely that the patient is prediabetic. She will also have insulin coverage for her hyperglycemic excursions. The patient will be kept on her home medications for hypertension as well as her depression and anxiety. The patient further will have DVT prophylaxis with the use of Lovenox 40 mg subcu daily. The patient has been encouraged to ambulate. The patient should be appropriate for discharge in 1 to 2 days or after her symptoms have improved. 08/04/2020 The patient is a 50-year-old lady who was admitted for intractable nausea and vomiting that had been associated with COVID-19 infection. She has not required oxygen. The patient says that the nausea has improved and she will be continued on Zofran as necessary to help with her nausea. The patient also had a hemoglobin A1c which was completed and was noted to be at 7.6%. The patient says that she has been taking medication to prevent diabetes. The patient will be continued on the appropriate diabetic diet as well as insulin to help with her episodes of hyperglycemia. DVT prophylaxis will continue with Lovenox 40 mg subcutaneous daily. She is also on steroids and she will be transitioned to oral steroids tomorrow. The patient will likely be appropriate for discharge in 1 to 2 days depending upon her symptoms as well as her electrolytes. The patient's magnesium and potassium have been replaced. Repeat laboratory studies have been ordered. She has been encouraged to ambulate. 08/05/2020 Patient is doing well and remains off oxygen. She reports no respiratory symptoms. She states she feels pretty good. Her potassium today was rechecked and was quite low at 2.8. This will be supplemented throughout the day both via IV and p.o. meds. We are utilizing caution given her street of nausea and v omiting with the p.o. potassium. We will recheck labs tomorrow. She has been ambulating about the room. She has no concerns or complaints. Nursing has no concerns or complaints. Hopeful for discharge tomorrow pending continued improvement and repeat lab draw.
[2020-08-05] MEDS: Enoxaparin 40 MG/0.4 ML Syringe SUBCUT SCH (08:26)
[2020-08-05] MEDS: Dexamethasone 4 MG/ML SDV IV SCH (08:27)
[2020-08-05] MEDS ORDERED: Potassium Chloride 20 MEQ Tab.ER PO ONE ×2 (08:30→21:00)
[2020-08-05] MEDS: ARIPiprazole 5 MG Tab PO SCH (08:31)
[2020-08-05] MEDS: Aspirin 81 MG Tab.EC PO SCH (08:31)
[2020-08-05] MEDS: Citalopram 20 MG Tab PO SCH (08:32)
[2020-08-05] MEDS: Lisinopril 10 MG Tab PO SCH (08:33)
[2020-08-05] MEDS: Potassium Chloride 10 MEQ in Premix Bag 1 BAG IV SCH ×4 (08:35→13:16)
[2020-08-05] MEDS ORDERED: Nystatin Crm 30 GM Tube TOP PRN (09:04)
--- NOTE | 2020-08-05 15:08 | CR ---
Chest: Portable view of the chest was obtained. Comparison: Prior chest x-ray of 07/28/20. Findings: Heart size and mediastinum are normal. Patchy areas of increased density are seen within the right lung which are felt most likely to represent slight areas of pneumonia. Left lung is clear. Bony structures are grossly intact. Impression: 1. Patchy areas of increased density within the right lung most likely relating to COVID pneumonia. Diagnostic code #3
[2020-08-05] MEDS: cefTRIAXone 2 GM in Sodium Chloride 0.9% 100 ML IV SCH (18:32)
[2020-08-05] MEDS: Simvastatin 20 MG Tab PO SCH (21:22)
[2020-08-06] MEDS: Pantoprazole 40 MG Tab.CR PO SCH (06:29)
[2020-08-06] MEDS ORDERED: Magnesium Sulfate/Water 2 GM/50 ML BAG IV ONE (07:15)
[2020-08-06] MEDS: Enoxaparin 40 MG/0.4 ML Syringe SUBCUT SCH (08:30)
[2020-08-06] MEDS: Aspirin 81 MG Tab.EC PO SCH (08:31)
[2020-08-06] MEDS: ARIPiprazole 5 MG Tab PO SCH (08:31)
[2020-08-06] MEDS: Citalopram 20 MG Tab PO SCH (08:31)
[2020-08-06] MEDS: Lisinopril 10 MG Tab PO SCH (08:31)
[2020-08-06 08:33] VITALS: BP 96/73
[2020-08-06] MEDS ORDERED: Potassium Chloride 20 MEQ Tab.ER PO ONE (09:00)
[2020-08-06] MEDS ORDERED: Dexamethasone 4 MG Tab PO SCH (09:00)
--- NOTE | 2020-08-06 09:11 | PCM.DCSUM1 ---
Discharge Summary - Hospital Course HPI Initial Comments: The patient is a 50-year-old lady who had presented to the emergency department with a complaint of ongoing Covid symptoms. The patient was diagnosed with COVID-19 approximately 2 weeks ago. The patient reports that she has had cough, shortness of breath and she has had nausea vomiting with diarrhea. Patient feels like she has been feverish while at home. The patient says that she has just not been getting any better. Due to the nausea and vomiting the patient has not been taking her home medications for her anxiety or depression. The patient also has been using Zofran at home and this is not helped her. The patient also has been taking aripiprazole, Lexapro, and lisinopril. The patient does have a history of sleep apnea. Diagnosis: Stroke: No - Discharge Data Discharge Date: 08/06/20 (Admit date: 08/03/2020) Discharge Disposition: Home, Self-Care 01 Condition: Good - Referral to Home Health Primary Care Physician: Carlee Long MD - Discharge Diagnosis/Problem(s) (1) COVID-19 virus infection SNOMED Code(s): 735078022 ICD Code: U07.1 - COVID-19 Status: Acute Priority: High (2) Hypokalemia SNOMED Code(s): 84319991 ICD Code: E87.6 - HYPOKALEMIA Status: Acute Priority: High (3) Intractable nausea and vomiting SNOMED Code(s): 929537802 ICD Code: R11.2 - NAUSEA WITH VOMITING, UNSPECIFIED Status: Resolved Priority: High (4) Diabetes mellitus type 2 in obese SNOMED Code(s): 53072847 ICD Code: E11.69 - TYPE 2 DIABETES MELLITUS WITH OTHER SPECIFIED COMPLICATION; E66.9 - OBESITY, UNSPECIFIED Status: Chronic Priority: High (5) Hypertension SNOMED Code(s): 86570332 ICD Code: I10 - ESSENTIAL (PRIMARY) HYPERTENSION Status: Chronic Priority: Medium Qualifiers: Hypertension type: essential hypertension Qualified Code(s): I10 - Essential (primary) hypertension (6) Morbid obesity with BMI of 40.0-44.9, adult SNOMED Code(s): 393986316, 57679816413668 ICD Code: E66.01 - MORBID (SEVERE) OBESITY DUE TO EXCESS CALORIES; Z68.41 - BODY MASS INDEX [BMI]40.0-44.9, ADULT Status: Chronic Priority: Medium - Patient Summary/Data Labs Pending at D/C: None Recommended Follow-up Testing/Procedures: Follow-up with PCP within 7-10 days of discharge, sooner if needed. -Recommend re-check CBC, CMP, and magnesium at that appointment as potassium and magnesium have been low while in hospital Hospital Course: Patient was admitted for ongoing COVID-19 symptoms including weakness, nausea, vomiting and diarrhea. Patient received IV fluids and electrolytes were supplemented. Potassium was quite low at 2.8 and this did take an extra day to increase to a safe level for discharge. She was asymptomatic when her electrolytes were this low. Patient does report that she has a history of diarrhea but usually not to this extent. She was given Rocephin and dexamethasone during her stay. This will not be discontinued at discharge as her lung sounds are good and she is feeling much better. Nausea and vomiting did resolve. She was taking in p.o. intake well. She will be discharged on 4 days of 40 mEq potassium and 4 days of 400 mg p.o. magnesium. Instructed to continue to isolate for total of 20 days after her positive COVID-19 test. She instructed to follow-up with her primary care provider within 7 to 10 days of discharge, sooner if needed. Recommend recheck CBC, CMP, magnesium at that visit. As noted she was low here and was discharged on supplementation. She was instructed to return the emergency room or contact her primary care provider should symptoms return or worsen. She was discharged home today. All home medications were continued. - Patient Instructions Diet: Diabetic Diet Activity: As Tolerated Driving: Do Not Drive (today) Showering/Bathing: May Shower Notify Provider of: Fever, Increased Pain, Nausea and/or Vomiting Other/Special Instructions: Follow-up with primary care provider within 7-10 days of discharge, sooner if needed. Your potassium and magnesium were low while here. Theses were supplemented. We will continue this at discharge for a short course. Your primary care provider will need to re-check these at your follow-up appointment. You should continue to isolate for 20 days since your positive test, or as directed by your [facility] casey saw operator. Resume home medications as directed. No new COVID-19 medications. You completed treatment while here. Should symptoms return or worsen, contact primary care provider or return to the Emergency Department. - Discharge Plan *PRESCRIPTION DRUG MONITORING PROGRAM REVIEWED*: No *COPY OF PRESCRIPTION DRUG MONITORING REPORT IN PATIENT WHIT: No Prescriptions/Med Rec: Magnesium Oxide [Magnesium] 400 mg PO DAILY #4 tablet Potassium Chloride 40 meq PO DAILY #8 tablet.er Home Medications: Home Meds Escitalopram [Lexapro] 20 mg PO DAILY 11/29/16 [History] atorvaSTATin [Lipitor] 20 mg PO BEDTIME 11/18/17 [History] valACYclovir HCl [Valacyclovir] 2,000 mg PO DAILY PRN 11/18/17 [History] ARIPiprazole [Aripiprazole] 5 mg PO DAILY 05/31/18 [History] Aspirin [Children's Aspirin] 81 mg PO DAILY 05/31/18 [History] Lisinopril 10 mg PO DAILY 05/31/18 [History] Omeprazole 20 mg PO DAILY 05/31/18 [History] Dicyclomine [Bentyl] 20 mg PO Q6H PRN #8 tablet 05/25/19 [Rx] oxyCODONE HCl/Acetaminophen [Percocet 5-325 mg Tablet] 1 - 2 each PO Q4H PRN #12 tablet 05/25/19 [Rx] Ondansetron [Zofran ODT] 4 mg PO Q8HR PRN #7 tab.dis 07/28/20 [Rx] metFORMIN [Glucophage XR] 500 mg PO BID 08/03/20 [History] Magnesium Oxide [Magnesium] 400 mg PO DAILY #4 tablet 08/06/20 [Rx] Potassium Chloride 40 meq PO DAILY #8 tablet.er 08/06/20 [Rx] Oxygen Therapy Mode: Room Air Patient Handouts: COVID-19, Diabetes Mellitus and Sick Day Management, Sepsis, Diagnosis, Adult, COVID-19: How to Protect Yourself and Others - CDC, Exercising to Lose Weight, Preventing Diabetes Mellitus Complications Forms: ED Department Discharge Referrals: Carlee Long MD [Primary Care Provider] - 08/13/20 2:15 pm (Hospital follow-up appointment.) - Discharge Summary/Plan Comment DC Time >30 min.: Yes (45 mins) - General Info Date of Service: 08/06/20 Admission Dx/Problem (Free Text: Admission Diagnosis/Problem Admission Diagnosis/Problem Pneumonia Functional Status: Reports: Pain Controlled, Tolerating Diet, Ambulating, Urinating. Denies: New Symptoms - Review of Systems General: Reports: No Symptoms. Denies: Fever, Weakness, Fatigue, Malaise, Chills HEENT: Reports: No Symptoms. Denies: Headaches, Sore Throat Pulmonary: Reports: No Symptoms. Denies: Shortness of Breath, Cough, Sputum, Wheezing Cardiovascular: Reports: Dyspnea on Exertion. Denies: Chest Pain, Palpitations, Edema Gastrointestinal: Reports: Diarrhea (chronic for patient ). Denies: Abdominal Pain, Constipation, Nausea, Vomiting Genitourinary: Reports: No Symptoms. Denies: Dysuria Musculoskeletal: Reports: No Symptoms Skin: Reports: No Symptoms. Denies: Cyanosis Neurological: Reports: No Symptoms. Denies: Confusion, Pre-Existing Deficit, Gait Disturbance Psychiatric: Reports: No Symptoms - Patient Data Vitals - Most Recent: Last Vital Signs Temp 97.9 F 08/06/20 04:30 Pulse 62 08/06/20 04:30 Resp 18 08/06/20 04:30 BP 96/73 08/06/20 08:31 Pulse Ox 98 08/06/20 04:30 Weight - Most Recent: 242 lb 11.2 oz I&O - Last 24 hours: Intake & Output 08/05/20 08/06/20 08/06/20 22:59 06:59 14:59 Intake Total 3550 900 Output Total 600 Balance 3550 300 Lab Results - Last 24 hrs: Laboratory Results - last 24 hr 08/05/20 08/05/20 08/05/20 Range/Units 11:21 17:07 20:50 Sodium (136-145) mEq/L Potassium (3.5-5.1) mEq/L Chloride (98-107) mEq/L Carbon Dioxide (21-32) mEq/L Anion Gap (5-15) BUN (7-18) mg/dL Creatinine (0.55-1.02) mg/dL Est Cr Clr Drug Dosing mL/min Estimated GFR (MDRD) (>60) mL/min BUN/Creatinine Ratio (14-18) Glucose (74-106) mg/dL POC Glucose 181 H 169 H 195 H (70-105) mg/dL Calcium (8.5-10.1) mg/dL Magnesium (1.8-2.4) mg/dl 08/06/20 08/06/20 Range/Units 04:40 06:56 Sodium 143 (136-145) mEq/L Potassium 3.2 L (3.5-5.1) mEq/L Chloride 110 H (98-107) mEq/L Carbon Dioxide 23 (21-32) mEq/L Anion Gap 13.2 (5-15) BUN 23 H (7-18) mg/dL Creatinine 1.1 H (0.55-1.02) mg/dL Est Cr Clr Drug Dosing 47.32 mL/min Estimated GFR (MDRD) 52 (>60) mL/min BUN/Creatinine Ratio 20.9 H (14-18) Glucose 158 H (74-106) mg/dL POC Glucose 134 H (70-105) mg/dL Calcium 8.2 L (8.5-10.1) mg/dL Magnesium 1.8 (1.8-2.4) mg/dl Med Orders - Current: Current Medications Acetaminophen (Tylenol) 650 mg PO Q4H PRN PRN Reason: Pain (Mild 1-3)/fever Aripiprazole (Abilify) 5 mg PO DAILY [facility] Last Admin: 08/06/20 08:31 Dose: 5 mg Documented by: Aspirin (Halfprin) 81 mg PO DAILY [facility] Last Admin: 08/06/20 08:31 Dose: 81 mg Documented by: Citalopram Hydrobromide (Celexa) 40 mg PO DAILY [facility] Last Admin: 08/06/20 08:31 Dose: 40 mg Documented by: Dexamethasone (Dexamethasone) 6 mg PO DAILY [facility] Last Admin: 08/06/20 08:31 Dose: 6 mg Documented by: Dicyclomine HCl (Bentyl) 20 mg PO Q6H PRN PRN Reason: Abdominal cramps/diarrhea Last Admin: 08/04/20 17:36 Dose: 20 mg Documented by: Enoxaparin Sodium (Lovenox) 40 mg SUBCUT DAILY [facility] Last Admin: 08/06/20 08:30 Dose: 40 mg Documented by: Ceftriaxone Sodium 2 gm/ (Sodium Chloride) 100 mls @ 200 mls/hr IV Q24H [facility] Last Admin: 08/05/20 18:32 Dose: 200 mls/hr Documented by: Magnesium Sulfate (Magnesium Sulfate In Water Premix) 2 gm in 50 mls @ 25 mls/hr IV ONETIME ONE Stop: 08/06/20 09:14 Last Admin: 08/06/20 08:26 Dose: 25 mls/hr Documented by: Insulin Human Lispro (Humalog) 0 unit SUBCUT TIDAC [facility]; Protocol Last Admin: 08/06/20 08:04 Dose: Not Given Documented by: Lisinopril (Prinivil) 10 mg PO DAILY [facility] Last Admin: 08/06/20 08:31 Dose: 10 mg Documented by: Nystatin (Nystatin Crm) 2 gm TOP TID PRN PRN Reason: Rash Last Admin: 08/05/20 10:09 Dose: 1 applic Documented by: Ondansetron HCl (Zofran Odt) 4 mg PO Q6H PRN PRN Reason: nausea, able to take PO Ondansetron HCl (Zofran) 4 mg IV Q4H PRN PRN Reason: Nausea/Vomiting Oxycodone HCl (Oxycodone) 5 mg PO Q4H PRN PRN Reason: Pain (moderate 4-6) Pantoprazole Sodium (Protonix) 40 mg PO ACBREAKFAST [facility] Last Admin: 08/06/20 06:29 Dose: 40 mg Documented by: Simvastatin (Zocor) 20 mg PO BEDTIME [facility] Last Admin: 08/05/20 21:22 Dose: 20 mg Documented by: Temazepam (Restoril) 15 mg PO BEDTIME PRN PRN Reason: Sleep Discontinued Medications Dexamethasone (Dexamethasone) 6 mg IV DAILY [facility] Last Admin: 08/03/20 19:56 Dose: 6 mg Documented by: Dexamethasone (Decadron) 6 mg IV DAILY [facility] Last Admin: 08/05/20 08:27 Dose: 6 mg Documented by: Sodium Chloride (Normal Saline) 1,000 mls @ 150 mls/hr IV NOW STA Stop: 08/03/20 23:27 Last Admin: 08/03/20 17:08 Dose: 150 mls/hr Documented by: Potassium Chloride 10 meq/ (Premix) 100 mls @ 100 mls/hr IV ASDIRECTED [facility] Stop: 08/08/20 17:59 Last Admin: 08/03/20 18:41 Dose: 100 mls/hr Documented by: Magnesium Sulfate 4 gm/ Premix 50 mls @ 12.5 mls/hr IV ONETIME ONE Stop: 08/03/20 21:01 Last Admin: 08/03/20 17:48 Dose: 12.5 mls/hr Documented by: Sodium Chloride (Normal Saline) 100 mls @ 60 mls/hr IV ASDIRECTED [facility] Last Admin: 08/03/20 18:01 Dose: 60 mls/hr Documented by: Sodium Chloride (Normal Saline) 1,000 mls @ 75 mls/hr IV ASDIRECTED [facility] Last Admin: 08/04/20 19:02 Dose: 75 mls/hr Documented by: Potassium Chloride 10 meq/ (Premix) 100 mls @ 100 mls/hr IV Q1H [facility] Stop: 08/03/20 22:59 Last Admin: 08/03/20 22:53 Dose: 100 mls/hr Documented by: Magnesium Sulfate (Magnesium Sulfate In Water Premix) 2 gm in 50 mls @ 25 mls/hr IV ONETIME ONE Stop: 08/03/20 20:39 Last Admin: 08/03/20 19:27 Dose: Not Given Documented by: Potassium Chloride 10 meq/ (Premix) 100 mls @ 100 mls/hr IV ONETIME ONE Stop: 08/04/20 08:29 Last Admin: 08/04/20 09:40 Dose: 100 mls/hr Documented by: Potassium Chloride 10 meq/ (Premix) 100 mls @ 100 mls/hr IV Q1H [facility] Stop: 08/05/20 12:29 Last Admin: 08/05/20 13:16 Dose: 100 mls/hr Documented by: Insulin Human Lispro (Humalog) [address] [facility]; Protocol Last Admin: 08/04/20 18:59 Dose: Not Given Documented by: Insulin Human Regular (Humulin R) 0 unit [address]BC[address] [facility]; Protocol Last Admin: 08/03/20 21:07 Dose: Not Given Documented by: Iopamidol (Isovue-370 (76%)) 100 ml IVPUSH ONETIME ONE Stop: 08/03/20 17:30 Last Admin: 08/03/20 18:00 Dose: 100 ml Documented by: Potassium Chloride (Klor-Con M20) 40 meq PO ONETIME ONE Stop: 08/05/20 08:31 Last Admin: 08/05/20 08:31 Dose: 40 meq Documented by: Potassium Chloride (Klor-Con M20) 20 meq PO ONETIME ONE Stop: 08/05/20 21:01 Last Admin: 08/05/20 21:22 Dose: 20 meq Documented by: Potassium Chloride (Klor-Con M20) 40 meq PO ONETIME ONE Stop: 08/06/20 09:01 Last Admin: 08/06/20 08:30 Dose: 40 meq Documented by: Sodium Chloride (Saline Flush) 10 ml FLUSH ONETIME ONE Stop: 08/03/20 17:30 Last Admin: 08/03/20 18:00 Dose: 10 ml Documented by: - Exam Quality Assessment: Reports: DVT Prophylaxis. Denies: Supplemental Oxygen, Urine Catheter General: Reports: Alert, Oriented, Cooperative, No Acute Distress HEENT: Reports: Pupils Equal, Pupils Reactive, Mucous Membr. Moist/[place] Neck: Reports: Supple, Trachea Midline Lungs: Reports: Clear to Auscultation, Normal Respiratory Effort, Decreased Breath Sounds Cardiovascular: Reports: Regular Rate, Regular Rhythm GI/Abdominal Exam: Normal Bowel Sounds, Soft, Non-Tender, No Distention (Female) Exam: Deferred Rectal (Female) Exam: Deferred Back Exam: Reports: Normal Inspection, Full Range of Motion Extremities: Normal Inspection, Normal Range of Motion, Non-Tender, No Pedal Edema, Normal Capillary Refill Skin: Reports: Warm, Dry, Intact Neurological: Reports: No New Focal Deficit Psy/Mental Status: Reports: Alert, Normal Affect, Normal Mood
[2020-08-06 09:28] VITALS: PULSE 71
== END 2020-08-06 10:58 | disposition home or self-care (01) | DRG 137 ==
LOC: JD.ED 15:20 → JD.MS 18:29
PROVIDERS: ADMIT Internal Medicine; ATTEND Internal Medicine
DX: U07.1 COVID-19 (principal); J12.89 Other viral pneumonia; E87.6 Hypokalemia; E66.01 Morbid (severe) obesity due to excess calories; Z68.41 Body mass index [BMI] 40.0-44.9, adult; I10 Essential (primary) hypertension; G47.33 Obstructive sleep apnea (adult) (pediatric); F41.9 Anxiety disorder, unspecified; F32.9 Major depressive disorder, single episode, unspecified; E78.5 Hyperlipidemia, unspecified; H54.7 Unspecified visual loss; K21.9 Gastro-esophageal reflux disease without esophagitis; Z90.710 Acquired absence of both cervix and uterus; Z90.49 Acquired absence of other specified parts of digestive tract; Z98.890 Other specified postprocedural states; E11.65 Type 2 diabetes mellitus with hyperglycemia; Z79.4 Long term (current) use of insulin
CPT/HCPCS: 36415; 71045; 71045-26; 71275; 71275-26; 80048; 80053; 82728; 82962; 83036; 83615; 83735; 84484; 85025; 85379; 86140; 93005; A9270-GY; J0696; J1100; J1650; J1815-GY; J3475; J3480; J7030; J7050; J8540; Q9967

== ENCOUNTER 2023-11-06 21:07 | Emergency (ER) | payer BC ==
[2023-11-06] MEDS: Sodium Chloride 0.9% 1,000 ML IV STA (21:52)
[2023-11-06] MEDS: Sodium Chloride 0.9% 10 ML Syringe FLUSH PRN (21:52)
[2023-11-06] MEDS: Ondansetron 4 MG/2 ML SDV IVPUSH ONE (21:52)
[2023-11-06 21:58] LABS: HEMATOCRIT 40.4 % (37.0-47.0); HEMOGLOBIN 13.8 gm/dl (12.0-16.0); MEAN CORPUSCULAR HEMOGLOBIN 28.2 pg (28.0-32.0); MEAN CORPUSCULAR HGB CONC 34.2 g/dl (32.0-36.0); MEAN CORPUSCULAR VOLUME 82.6 fl (83.0-99.0); MEAN PLATELET VOLUME 10.7 fl (9.4-12.3); PLATELET COUNT,PLT 132 K/mm3 (150-400); RED BLOOD CELL COUNT 4.89 M/mm3 (4.10-5.30); WHITE BLOOD CELL COUNT,WBC 8.69 K/mm3 (3.9-11.3)
[2023-11-06 22:15] LABS: INR 1.03
[2023-11-06 22:22] LABS: A/G RATIO 0.9 (1-2); ALBUMIN 3.4 g/dl (3.4-5.0); ANION GAP 17.4 (5-15); C-REACTIVE PROTEIN 2.26 mg/dL (<0.30); CALCIUM 9.2 mg/dL (8.5-10.1); CREATININE 1.4 mg/dL (0.55-1.02); EST CRCL DRUG DOSING (CG) 35.91 mL/min; POTASSIUM,K 3.4 mEq/L (3.5-5.1); PROTEIN TOTAL,TP 7.4 g/dl (6.4-8.2)
[2023-11-06 22:24] LABS: LACTIC ACID 2.4 mmol/L (0.4-2.0)
[2023-11-06 22:37] LABS: BAND PERCENT MAN 0 % (0-10); BASOPHILS PERCENT MAN 0 (0.1-1.2); EOSINOPHILS PERCENT MAN 2 % (0.7-5.8); LYMPHOCYTES % ATYPICAL MANUAL 1 %; LYMPHOCYTES PERCENT MAN 8 % (20-40); MONOCYTES PERCENT MAN 3 % (2-10)
[2023-11-06 22:38] LABS: PLATELET COUNT ESTIMATE DECREASED
[2023-11-06] MEDS: Acetaminophen 325 MG Tab PO ONE (22:42)
[2023-11-06 22:43] LABS: APPEARANCE,URINE SLT CLOUDY (Clear); BILIRUBIN,URINE 1+ (Negative); COLOR,URINE YELLOW (Yellow); GLUCOSE,URINE NEGATIVE (Negative); KETONES,URINE NEGATIVE (Negative); LEUKOCYTE ESTERASE,URINE 1+ (Negative); NITRITE,URINE NEGATIVE (Negative); OCCULT BLOOD,URINE 2+ (Negative); PROTEIN,URINE 1+ (Negative); UROBILINOGEN,URINE 0.2 (0.2-1.0)
[2023-11-06 22:49] LABS: BACTERIA,URINE FEW /hpf (FEW); MUCUS,URINE MODERATE /hpf (FEW); SQUAMOUS EPITHELIAL CELLS,UR 0-5 /hpf (0-5)
[2023-11-06] MEDS: cefTRIAXone 2 GM in Sodium Chloride 0.9% 100 ML IV ONE (23:02)
[2023-11-06 23:17] LABS: CORONAVIRUS COVID-19 NAA NEGATIVE (NEGATIVE); INFLUENZA A NAA NEGATIVE (NEGATIVE); RESPIRATORY SYNCYTIAL VIR NAA NEGATIVE (NEGATIVE)
[2023-11-07 00:05] LABS: TSH 0.757 uIU/mL (0.358-3.74)
[2023-11-07 01:03] VITALS: BP 114/85; PULSE 84
== END 2023-11-07 01:04 | disposition home or self-care (01) ==
LOC: JD.ED 21:07
DX: N30.00 Acute cystitis without hematuria (principal); E86.0 Dehydration; E78.00 Pure hypercholesterolemia, unspecified; I10 Essential (primary) hypertension; K21.9 Gastro-esophageal reflux disease without esophagitis; E11.40 Type 2 diabetes mellitus with diabetic neuropathy, unspecified; E66.9 Obesity, unspecified; R00.0 Tachycardia, unspecified; Z90.49 Acquired absence of other specified parts of digestive tract; Z86.19 Personal history of other infectious and parasitic diseases; Z86.16 Personal history of COVID-19; Z68.41 Body mass index [BMI] 40.0-44.9, adult; Z79.82 Long term (current) use of aspirin; Z79.84 Long term (current) use of oral hypoglycemic drugs; Z79.899 Other long term (current) drug therapy
CPT/HCPCS: 0241U; 36415; 70450; 74176; 80053; 81001; 83605; 84443; 84484; 85007; 85027; 85610; 86140; 87040; 87086; 93005; 96361; 96374; 96375; 99284; A9270; J0696; J2405; J3490; J7030

== ENCOUNTER 2024-02-14 20:31 | Observation (INO) | payer BC ==
[2024-02-14] MEDS ORDERED: Ondansetron 4 MG Tab.DIS PO PRN (22:00)
[2024-02-14] MEDS ORDERED: Acetaminophen 325 MG Tab PO PRN (22:00)
[2024-02-14] MEDS: oxyCODONE 5 MG Tab PO PRN (23:11)
[2024-02-14] MEDS: Lactated Ringers 1,000 ML IV SCH (23:34)
[2024-02-14] MEDS: Piperacillin/Tazobactam 4.5 GM in Sodium Chloride 0.9% 100 ML IV ONE (23:36)
[2024-02-15] MEDS: Morphine 2 MG/ML SYRINGE IVPUSH PRN (01:36)
[2024-02-15] MEDS: Piperacillin/Tazobactam 4.5 GM in Sodium Chloride 0.9% 100 ML IV SCH (04:22)
[2024-02-15 04:50] LABS: BASOPHILS ABSOLUTE AUTO 0.1 K/mm3 (0.0-0.2); BASOPHILS PERCENT AUTO 0.5 % (0.0-1.0); EOSINOPHILS ABSOLUTE AUTO 0.4 K/mm3 (0.0-0.4); EOSINOPHILS PERCENT AUTO 3.2 % (0.0-6.0); HEMATOCRIT 35.6 % (37.0-47.0); HEMOGLOBIN 11.7 gm/dl (12.0-16.0); IMMATURE GRAN ABSOLUTE AUTO 0.06 K/mm3 (0.00-0.05); IMMATURE GRAN PERCENT AUTO 0.5 % (0.0-0.4); LYMPHOCYTES ABSOLUTE AUTO 3.3 K/mm3 (1.0-4.8); LYMPHOCYTES PERCENT AUTO 28.7 % (24.0-44.0); MEAN CORPUSCULAR HEMOGLOBIN 26.8 pg (28.0-32.0); MEAN CORPUSCULAR HGB CONC 32.9 g/dl (32.0-36.0); MEAN CORPUSCULAR VOLUME 81.7 fl (83.0-99.0); MEAN PLATELET VOLUME 11.2 fl (9.4-12.3); MONOCYTES ABSOLUTE AUTO 0.8 K/mm3 (0.0-0.8); MONOCYTES PERCENT AUTO 6.6 % (0.0-8.0); NEUTROPHILS ABSOLUTE AUTO 6.9 K/mm3 (1.8-7.7); NEUTROPHILS PERCENT AUTO 60.5 % (41.0-71.0); PLATELET COUNT,PLT 122 K/mm3 (150-400); RED BLOOD CELL COUNT 4.36 M/mm3 (4.10-5.30); WHITE BLOOD CELL COUNT,WBC 11.47 K/mm3 (3.9-11.3)
[2024-02-15 05:49] LABS: A/G RATIO 0.8 (1-2); ALBUMIN 2.8 g/dl (3.4-5.0); ANION GAP 12.9 (5-15); BILIRUBIN TOTAL 3.3 mg/dL (0.2-1.0); BUN/CREATININE RATIO 8.3 (14-18); CALCIUM 8.7 mg/dL (8.5-10.1); CREATININE 1.2 mg/dL (0.55-1.02); EST CRCL DRUG DOSING (CG) 41.89 mL/min; POTASSIUM,K 2.9 mEq/L (3.5-5.1); PROTEIN TOTAL,TP 6.5 g/dl (6.4-8.2)
[2024-02-15] MEDS: Pantoprazole 40 MG Tab.CR PO SCH (06:36)
[2024-02-15] MEDS ORDERED: Non-Formulary Medication 1 Each (Potassium Chloride [Potassium Chloride] 20 MEQ Tablet.Er) PO SCH (09:00)
[2024-02-15] MEDS ORDERED: Lisinopril 10 MG Tab PO SCH (09:00)
[2024-02-15] MEDS: Potassium Chloride 10 MEQ in Premix Bag 1 BAG IV SCH (09:06)
[2024-02-15] MEDS: Aspirin 81 MG Tab.Chew PO SCH (09:17)
[2024-02-15] MEDS: Magnesium Oxide 400 MG Tab PO SCH (09:20)
[2024-02-15] MEDS: Citalopram 20 MG Tab PO SCH (09:20)
[2024-02-15] MEDS: ARIPiprazole 5 MG Tab PO SCH (09:20)
[2024-02-15] MEDS: Lactated Ringers 1,000 ML IV ONE (17:04)
[2024-02-15] MEDS: atorvaSTATin 20 MG Tab PO SCH (20:03)
[2024-02-16 04:53] LABS: BASOPHILS ABSOLUTE AUTO 0.1 K/mm3 (0.0-0.2); BASOPHILS PERCENT AUTO 0.7 % (0.0-1.0); EOSINOPHILS ABSOLUTE AUTO 0.6 K/mm3 (0.0-0.4); EOSINOPHILS PERCENT AUTO 6.5 % (0.0-6.0); HEMATOCRIT 39.3 % (37.0-47.0); HEMOGLOBIN 12.3 gm/dl (12.0-16.0); IMMATURE GRAN ABSOLUTE AUTO 0.03 K/mm3 (0.00-0.05); IMMATURE GRAN PERCENT AUTO 0.4 % (0.0-0.4); LYMPHOCYTES ABSOLUTE AUTO 2.4 K/mm3 (1.0-4.8); LYMPHOCYTES PERCENT AUTO 28.9 % (24.0-44.0); MEAN CORPUSCULAR HEMOGLOBIN 26.9 pg (28.0-32.0); MEAN CORPUSCULAR HGB CONC 31.3 g/dl (32.0-36.0); MONOCYTES ABSOLUTE AUTO 0.5 K/mm3 (0.0-0.8); MONOCYTES PERCENT AUTO 6.4 % (0.0-8.0); NEUTROPHILS ABSOLUTE AUTO 4.8 K/mm3 (1.8-7.7); NEUTROPHILS PERCENT AUTO 57.1 % (41.0-71.0); PLATELET COUNT,PLT 117 K/mm3 (150-400); RED BLOOD CELL COUNT 4.57 M/mm3 (4.10-5.30); WHITE BLOOD CELL COUNT,WBC 8.43 K/mm3 (3.9-11.3)
[2024-02-16 05:21] LABS: ANION GAP 11.3 (5-15); BUN/CREATININE RATIO 6.9 (14-18); CALCIUM 8.9 mg/dL (8.5-10.1); CREATININE 1.3 mg/dL (0.55-1.02); EST CRCL DRUG DOSING (CG) 38.67 mL/min; POTASSIUM,K 3.3 mEq/L (3.5-5.1)
[2024-02-16] MEDS: ARIPiprazole 10 MG Tab PO SCH (08:18)
[2024-02-16] MEDS: Benzocaine/Cetylpyridinium/Menthol Lozenge MUCMEM PRN (15:47)
[2024-02-17 04:47] LABS: BASOPHILS PERCENT AUTO 0.6 % (0.0-1.0); EOSINOPHILS ABSOLUTE AUTO 0.5 K/mm3 (0.0-0.4); EOSINOPHILS PERCENT AUTO 6.8 % (0.0-6.0); HEMATOCRIT 34.2 % (37.0-47.0); IMMATURE GRAN ABSOLUTE AUTO 0.03 K/mm3 (0.00-0.05); IMMATURE GRAN PERCENT AUTO 0.4 % (0.0-0.4); LYMPHOCYTES PERCENT AUTO 29.1 % (24.0-44.0); MEAN CORPUSCULAR HEMOGLOBIN 26.8 pg (28.0-32.0); MEAN CORPUSCULAR HGB CONC 32.2 g/dl (32.0-36.0); MEAN CORPUSCULAR VOLUME 83.4 fl (83.0-99.0); MEAN PLATELET VOLUME 10.7 fl (9.4-12.3); MONOCYTES ABSOLUTE AUTO 0.6 K/mm3 (0.0-0.8); MONOCYTES PERCENT AUTO 8.2 % (0.0-8.0); NEUTROPHILS ABSOLUTE AUTO 3.8 K/mm3 (1.8-7.7); NEUTROPHILS PERCENT AUTO 54.9 % (41.0-71.0); PLATELET COUNT,PLT 119 K/mm3 (150-400); WHITE BLOOD CELL COUNT,WBC 6.95 K/mm3 (3.9-11.3)
[2024-02-17 08:24] VITALS: BP 102/49; PULSE 81
== END 2024-02-17 10:14 | disposition home or self-care (01) ==
LOC: JD.ED 20:31 → JD.MS 22:00
PROVIDERS: ADMIT Surgery; ATTEND Surgery
DX: K57.30 Diverticulosis of large intestine without perforation or abscess without bleeding (principal); I10 Essential (primary) hypertension; E78.00 Pure hypercholesterolemia, unspecified; E11.40 Type 2 diabetes mellitus with diabetic neuropathy, unspecified; F32.A Depression, unspecified; Z79.82 Long term (current) use of aspirin; Z79.84 Long term (current) use of oral hypoglycemic drugs; Z79.899 Other long term (current) drug therapy; Z91.018 Allergy to other foods
CPT/HCPCS: 36415; 80048; 80053; 82248; 85025; 96361; 96365; 96366; 96367; 96375; 96376; A9270-GY; G0378; J2270; J2543; J3480; J3490; J7120

== ENCOUNTER 2024-04-04 06:39 | Day surgery (SDC) | payer BC ==
[~2024-04-04 06:39] MED LIST: Sodium Chloride 0.9% 10 ML Syringe FLUSH PRN; Sodium Chloride 0.9% 10 ML Syringe FLUSH SCH
[2024-04-04] MEDS: Lactated Ringers 1,000 ML IV SCH (06:50)
[2024-04-04] MEDS ORDERED: Propofol 200 MG/20 ML SDV ONE ×2 (07:10→07:57)
[2024-04-04 08:30] VITALS: BP 100/68; PULSE 78
== END 2024-04-04 08:35 | disposition home or self-care (01) ==
LOC: JD.SDS 06:39
PROVIDERS: ATTEND Surgery
DX: K57.30 Diverticulosis of large intestine without perforation or abscess without bleeding (principal); K64.4 Residual hemorrhoidal skin tags; I10 Essential (primary) hypertension; E78.00 Pure hypercholesterolemia, unspecified; K21.9 Gastro-esophageal reflux disease without esophagitis; E11.40 Type 2 diabetes mellitus with diabetic neuropathy, unspecified; Z79.899 Other long term (current) drug therapy; Z87.891 Personal history of nicotine dependence; E66.9 Obesity, unspecified; Z68.41 Body mass index [BMI] 40.0-44.9, adult
CPT/HCPCS: 45378; J2704; J7120

== ENCOUNTER 2025-07-08 05:49 | Emergency (ER) | payer BC ==
[2025-07-08] MEDS ORDERED: Sodium Chloride 0.9% 10 ML Syringe FLUSH PRN (06:07)
[2025-07-08] MEDS: Ondansetron 4 MG/2 ML SDV IVPUSH ONE (06:34)
[2025-07-08] MEDS: Ketorolac 30 MG/ML SDV IVPUSH ONE (06:34)
[2025-07-08 06:35] LABS: BASOPHILS ABSOLUTE AUTO 0.0 K/mm3 (0.0-0.2); BASOPHILS PERCENT AUTO 0.5 % (0.0-1.0); EOSINOPHILS ABSOLUTE AUTO 0.2 K/mm3 (0.0-0.4); EOSINOPHILS PERCENT AUTO 2.8 % (0.0-6.0); IMMATURE GRAN ABSOLUTE AUTO 0.02 K/mm3 (0.00-0.05); IMMATURE GRAN PERCENT AUTO 0.3 % (0.0-0.4); LYMPHOCYTES ABSOLUTE AUTO 1.1 K/mm3 (1.0-4.8); LYMPHOCYTES PERCENT AUTO 16.4 % (24.0-44.0); MEAN PLATELET VOLUME 11.4 fl (9.4-12.3); MONOCYTES ABSOLUTE AUTO 0.8 K/mm3 (0.0-0.8); MONOCYTES PERCENT AUTO 11.7 % (0.0-8.0); NEUTROPHILS ABSOLUTE AUTO 4.4 K/mm3 (1.8-7.7); NEUTROPHILS PERCENT AUTO 68.3 % (41.0-71.0); NRBC ABSOLUTE 0.00 (0.00-0.02); NRBC PERCENT 0.0 % (0.0-0.2); PLATELET COUNT,PLT 85 K/mm3 (150-400); RED BLOOD CELL COUNT 4.44 M/mm3 (4.10-5.30); WHITE BLOOD CELL COUNT,WBC 6.48 K/mm3 (3.9-11.3)
[2025-07-08 06:57] LABS: A/G RATIO 0.7 (1-2); ALANINE AMINOTRANSFERASE,ALT 19.0 U/L (14-59); ASPARTATE AMNIOTRANSFERASE,AST 26.0 U/L (15-37); BILIRUBIN TOTAL 2.2 mg/dL (0.2-1.0); BLOOD UREA NITROGEN,BUN 18.0 mg/dL (7-18); CARBON DIOXIDE,CO2 26.0 mEq/L (21-32); CHLORIDE,CL 106.0 mEq/L (98-107); CREATININE 1.4 mg/dL (0.55-1.02); EST CRCL DRUG DOSING (CG) 35.06 mL/min; ESTIMATED GFR 44.0 mL/min (>60); GLUCOSE RANDOM 132.0 mg/dL (70-99); POTASSIUM,K 3.2 mEq/L (3.5-5.1); PROTEIN TOTAL,TP 6.9 g/dl (6.4-8.2); SODIUM,NA 142.0 mEq/L (136-145)
[2025-07-08 08:06] VITALS: BP 105/59; PULSE 92
== END 2025-07-08 07:50 | disposition home or self-care (01) ==
LOC: JD.ED 05:49
DX: M54.50 Low back pain, unspecified (principal); E86.0 Dehydration; E66.9 Obesity, unspecified; E11.40 Type 2 diabetes mellitus with diabetic neuropathy, unspecified; K21.9 Gastro-esophageal reflux disease without esophagitis; I10 Essential (primary) hypertension; E78.00 Pure hypercholesterolemia, unspecified; Z91.018 Allergy to other foods; Z79.82 Long term (current) use of aspirin; Z79.899 Other long term (current) drug therapy; Z86.16 Personal history of COVID-19; Z90.49 Acquired absence of other specified parts of digestive tract; Z90.89 Acquired absence of other organs; Z68.41 Body mass index [BMI] 40.0-44.9, adult
CPT/HCPCS: 36415; 74176; 80053; 83690; 85025; 96361; 96374; 96375; 99284; J1885; J2405; J7030; J1171